=== PATIENT | male | born 1940 | race Caucasian/White ===

== ENCOUNTER 2019-01-23 17:51 | Inpatient (IN) | payer MEDICARE, MEDICAID ==
[2019-01-23 18:14] LABS: ABSOLUTE EOSINOPHILS # (AUTO) 0.1 10^3/uL (0.0-0.6); ABSOLUTE LYMPHOCYTES (AUTO) 0.9 10^3/uL (0.5-4.7); ABSOLUTE MONOCYTES (AUTO) 0.6 10^3/uL (0.1-1.4); ABSOLUTE NEUT (AUTO) 6.6 10^3/uL (1.7-8.2); BASOPHILS % (AUTO) 0.2 % (0-2); EOSINOPHILS % (AUTO) 1.1 % (0-6); HEMATOCRIT 40.3 % (37.9-51.0); HEMOGLOBIN 13.2 g/dL (13.5-17.0); LYMPHOCYTES % (AUTO) 10.7 % (13-45); MEAN CORPUSCULAR HEMOGLOBIN 30.5 pg (27.0-33.4); MEAN CORPUSCULAR HGB CONC 32.8 g/dL (32.0-36.0); MEAN CORPUSCULAR VOLUME 93 fl (80-97); MONOCYTES % (AUTO) 7.3 % (3-13); PLATELET COUNT 115 10^3/uL (150-450); RED BLOOD COUNT 4.34 10^6/uL (4.35-5.55); SEGMENTED NEUTROPHILS % (AUTO) 80.7 % (42-78); TOTAL CELLS COUNTED % (AUTO) 100 %; WHITE BLOOD COUNT 8.2 10^3/uL (4.0-10.5)
[2019-01-23] MEDS ORDERED: NORMAL SALINE 1000 ML 1,000 ML IV ONE (18:14)
[2019-01-23 18:26] LABS: VENOUS BLOOD BASE EXCESS -2.4 mmol/L; VENOUS BLOOD HCO3 25.9 mmol/L (20-32); VENOUS BLOOD PCO2 60.1 mmHg (35-63); VENOUS BLOOD PH 7.25 (7.30-7.42)
[2019-01-23 18:32] LABS: INTERNATIONAL RATION (INR) 1.29; PROTHROMBIN TIME 16.2 SEC (11.4-15.4)
[2019-01-23 18:34] LABS: ALBUMIN 3.3 g/dL (3.5-5.0); ALKALINE PHOSPHATASE 77 U/L (38-126); ANION GAP 12 (5-19); ASPARTATE AMINO TRANSFERASE 19 U/L (17-59); BILIRUBIN,DIRECT 0.7 mg/dL (0.0-0.4); BILIRUBIN,TOTAL 1.1 mg/dL (0.2-1.3); BLOOD UREA NITROGEN 113 mg/dL (7-20); CARBON DIOXIDE 26 mmol/L (22-30); CHLORIDE 103 mmol/L (98-107); GLUCOSE 128 mg/dL (75-110); POTASSIUM 4.5 mmol/L (3.6-5.0); TOTAL PROTEIN 6.5 g/dL (6.3-8.2)
[2019-01-23 19:50] LABS: APPEARANCE,URINE CLEAR; BILIRUBIN,URINE NEGATIVE (NEGATIVE); COLOR,URINE YELLOW; GLUCOSE, URINE NEGATIVE (NEGATIVE); KETONES,URINE TRACE mg/dL (NEGATIVE); LEUKOCYTE ESTERASE,URINE TRACE (NEGATIVE); NITRITE,URINE NEGATIVE (NEGATIVE); PROTEIN,URINE NEGATIVE (NEGATIVE); URINE SPECIFIC GRAVITY 1.018
[2019-01-23 20:02] LABS: ADD MANUAL MICROSCOPIC YES
[2019-01-23 20:04] LABS: WBC,URINE 0-1 /HPF
--- NOTE | 2019-01-23 21:22 | RADIOLOGY REPORT (SQ) ---
XR CHEST 2 VIEWS EXAM DATE: 01/23/2019 8:41 PM CDT HISTORY: Dyspnea, hypoxia. COMPARISON: None. FINDINGS: The heart size is within normal limits. No consolidation, pleural effusion, or pneumothorax is seen. Scarring in the right midlung zone. The bony thorax is intact. The right hemidiaphragm is elevated. IMPRESSION: No evidence of acute cardiopulmonary disease.
--- NOTE | 2019-01-23 22:30 | ER Document Report ---
ED General - General Chief Complaint: Blood Pressure Problem Stated Complaint: POSSIBLE SEPSIS Time Seen by Provider: 01/23/19 18:13 Primary Care Provider: CORAL GUSMAN PA-C [Primary Care Provider] - Follow up as needed TRAVEL OUTSIDE OF THE [place] IN LAST 30 DAYS: No - HPI Notes: Patient is a 78-year-old male brought into the emergency department for evaluation. He had symptoms for about a week. Evidently he has been dizzy, felt short of breath. His shortness of breath is constant. His dizziness is constant. He states that the world seems to be moving. Is not worsened by moving his head. They are unaware of any fevers at home. According to daughter, he started slurring his speech about 4 days ago. No recent falls. No visual changes. Diminished appetite with some complaints of nausea. No other medication changes. No other acute complaints or concerns. On arrival for EMS, patient's temperature was 100.6. Patient is also been having intermittent r ight-sided abdominal pain ongoing for the last several weeks. He really cannot tell me what makes it better or worse. - Related Data Allergies/Adverse Reactions: No Known Allergies Allergy (Verified 01/23/19 18:20) Past Medical History - General Information source: Patient, Relative - Social History Smoking Status: Former Smoker Family History: Reviewed & Not Pertinent Patient has suicidal ideation: No Patient has homicidal ideation: No - Past Medical History Cardiac Medical History: Reports: Hx Hypertension Denies: Hx Heart Attack Pulmonary Medical History: Reports: Hx Asthma, Hx COPD Denies: Hx Tuberculosis Neurological Medical History: Reports: Hx Cerebrovascular Accident. Denies: Hx Seizures Endocrine Medical History: Reports: Hx Diabetes Mellitus Type 2 GI Medical History: Reports: Hx Gastroesophageal Reflux Disease. Denies: Hx Hepatitis, Hx Hiatal Hernia, Hx Ulcer Musculoskeletal Medical History: Reports Hx Arthritis - Rheumatoid arthritis Infectious Medical History: Denies: Hx Hepatitis Past Surgical History: Denies: Hx Open Heart Surgery, Hx Pacemaker - Immunizations Hx Diphtheria, Pertussis, Tetanus Vaccination: No Hx Pneumococcal Vaccination: 04/20/13 Review of Systems - Review of Systems Constitutional: See HPI EENT: No symptoms reported Cardiovascular: No symptoms reported Respiratory: See HPI Gastrointestinal: See HPI Genitourinary: No symptoms reported Musculoskeletal: No symptoms reported Skin: No symptoms reported Neurological/Psychological: See HPI Physical Exam - Vital signs Vitals: Resp 14 01/23/19 18:07 - Notes Notes: 8-year-old male who appears stated age in no acute distress. He is drowsy, but arouses easily to verbal stimuli. Vital signs reviewed, please refer to chart. Head is normocephalic, atraumatic. Pupils equal round, reactive to light. Neck is supple without meningismus. Heart is regular rate and rhythm. Lungs are clear to auscultation bilaterally. Abdomen is soft, tender in the right upper quadrant with some voluntary guarding but no rebound, normoactive bowel sounds throughout. Extremities without cyanosis, clubbing. Posterior calves are nontender. Peripheral pulses are equal. Skin is warm and dry. Patient is awake, alert. I asked him to tell me the month and the year, he states "I do not pay attention to those things." He is illiterate per family. He has no gross facial asymmetry, but he does have some mild dysarthria. Moves all 4 extremities spontaneously with plus 4 out of 5 strength throughout. Reflexes symmetrical. Course - Re-evaluation Re-evalutation: 01/23/19 22:29 Patient presents to the emergency department for evaluation. They were unaware of any fevers at home. His temperature was 100.6 prior to arrival, he was given Tylenol and IV fluids. Laboratory investigations revealed abnormal renal function. He has no history of ELINA per family, and in fact is on diclofenac for his rheumatoid arthritis. Given his dysarthria, I am inclined to scan his head. He does not have any signs of nuchal rigidity. Patient is stable, will continue to monitor. 01/24/19 02:18 Patient presents emergency department for evaluation of dizziness, increased confusion, slurred speech, some dyspnea with exertion. On further questioning the patient has had abdominal pain intermittently for some time. On exam he is tender with voluntary gurading in the right upper quadrant, although he states it is nontender. Laboratory investigations reveal acute kidney injury. He does not have a significant leukocytosis. Dysarthria was noted, so CT scan of the head was ordered, no acute findings were noted. CT scan of the abdomen and pelvis reveals calculus cholecystitis. Patient was given IV fluids. He was given IV antibiotics for cholecystitis. He is kept n.p.o. I spoke with Dr. Agustin, who will see the patient in consult. 01/24/19 02:[address] Foster, who will accept the patient for admission. - Vital Signs Vital signs: Temp Pulse Resp BP Pulse Ox 98.2 F 24 H 134/74 H 92 01/23/19 18:18 01/24/19 02:01 01/24/19 02:01 01/24/19 02:01 - Laboratory Result Diagrams: 01/23/19 17:35 01/23/19 17:35 Laboratory results interpreted by me: 01/23/19 01/23/19 01/23/19 17:35 17:35 17:35 RBC 4.34 L Hgb 13.2 L RDW 15.0 H Plt Count 115 L Lymph % (Auto) 10.7 L Seg Neutrophils % 80.7 H PT 16.2 H VBG pH BUN 113 H Creatinine 2.19 H Est GFR ( Amer) 35 L Est GFR (MDRD) Non-Af 29 L Glucose 128 H Calcium 8.0 L Direct Bilirubin 0.7 H Albumin 3.3 L Urine Ketones Urine Urobilinogen Ur Leukocyte Esterase 01/23/19 01/23/19 18:10 18:50 RBC Hgb RDW Plt Count Lymph % (Auto) Seg Neutrophils % PT VBG pH 7.25 L BUN Creatinine Est GFR ( Amer) Est GFR (MDRD) Non-Af Glucose Calcium Direct Bilirubin Albumin Urine Ketones TRACE H Urine Urobilinogen 4.0 H Ur Leukocyte Esterase TRACE H - Diagnostic Test Radiology reviewed: Reports reviewed Radiology results interpreted by me: 01/24/19 02:23 Chest X-Ray 01/23/19 20:41 IMPRESSION: No evidence of acute cardiopulmonary disease. Head CT 01/23/19 22:24 IMPRESSION: No acute intracranial abnormality. Mild chronic microvascular ischemic change and generalized atrophy. TECHNICAL DOCUMENTATION: Quality ID # 436: Final reports with documentation of one or more dose reduction techniques (e.g., Automated exposure control, adjustment of the mA and/or kV according to patient size, use of iterative reconstruction technique) copyright 2011 [employer]- All Rights Reserved Abdomen/Pelvis CT 01/24/19 00:58 IMPRESSION: Acute calculus cholecystitis. TECHNICAL DOCUMENTATION: Quality ID # 436: Final reports with documentation of one or more dose reduction techniques (e.g., Automated exposure control, adjustment of the mA and/or kV according to patient size, use of iterative reconstruction technique) copyright 2010 [employer]- All Rights Reserved Discharge - Discharge Clinical Impression: Dysarthria, Acute kidney injury Calculus of gallbladder with cholecystitis Qualifiers: Biliary obstruction: without biliary obstruction Condition: Stable Disposition: ADMITTED INPATIENT Admitting Provider: Cristian (Hospitalist) Unit Admitted: IMCU Referrals: CORAL GUSMAN PA-C [Primary Care Provider] - Follow up as needed
--- NOTE | 2019-01-23 23:31 | RADIOLOGY REPORT (SQ) ---
EXAM DESCRIPTION: CT HEAD WITHOUT IV CONTRAST COMPLETED DATE/TME: 01/23/2019 22:24 CLINICAL HISTORY: 78 years, Male, slurred speech COMPARISON: None. TECHNIQUE: Noncontrast CT of the head was performed. Coronal and sagittal reformations were created. Images stored on PACS. All CT scanners at this facility use dose modulation, iterative reconstruction, and/or weight based dosing when appropriate to reduce radiation dose to as low as reasonably achievable (ALARA). [facility]: Dose Right [facility]: CareDose [facility]: Dose Right [facility]: Teradose 4D [facility]: [employer] LIMITATIONS: None. FINDINGS: Evaluation of the brain parenchyma reveals mild periventricular and patchy subcortical white matter low attenuation. No acute intracranial hemorrhage, mass effect, or extra-axial fluid is seen. The ventricles and sulcal spaces are mildly enlarged. Globes and orbits show no acute abnormality. Mild opacity is evident within the right maxillary antrum inferiorly. Remaining paranasal sinuses and mastoid air cells are clear. No depressed skull fractures. IMPRESSION: No acute intracranial abnormality. Mild chronic microvascular ischemic change and generalized atrophy. TECHNICAL DOCUMENTATION: Quality ID # 436: Final reports with documentation of one or more dose reduction techniques (e.g., Automated exposure control, adjustment of the mA and/or kV according to patient size, use of iterative reconstruction technique) copyright 2011 [employer]- All Rights Reserved
--- NOTE | 2019-01-24 01:50 | RADIOLOGY REPORT (SQ) ---
EXAM DESCRIPTION: CT ABDOMEN PELVIS WITHOUT IV CONTRAST COMPLETED DATE/TME: 01/24/2019 00:58 CLINICAL HISTORY: 78 years, Male, right sided abdominal pain COMPARISON: None. TECHNIQUE: Axial CT images of the abdomen and pelvis were obtained without contrast. Sagittal and coronal reformats were performed. DLP [id number] Images stored on PACS. All CT scanners at this facility use dose modulation, iterative reconstruction, and/or weight based dosing when appropriate to reduce radiation dose to as low as reasonably achievable (ALARA). [facility]: Dose Right [facility]: CareDose [facility]: Dose Right [facility]: Teradose 4D [facility]: [employer] LIMITATIONS: None. FINDINGS: Lung bases are clear except for some subsegmental atelectasis. The liver, pancreas, spleen, and adrenal glands are unremarkable. There is a 3.7 cm gallstone with a distended gallbladder with minimal pericholecystic stranding. There is no evidence of urolithiasis or hydronephrosis bilaterally. There is no intraperitoneal free air or fluid. No pathologically enlarged lymph nodes are detected. There are atherosclerotic calcifications of the abdominal aorta without evidence of an aneurysm. The stomach, small bowel, appendix, and colon appear unremarkable. The urinary bladder and prostate gland are unremarkable. There are no lytic or blastic bone lesions. IMPRESSION: Acute calculus cholecystitis. TECHNICAL DOCUMENTATION: Quality ID # 436: Final reports with documentation of one or more dose reduction techniques (e.g., Automated exposure control, adjustment of the mA and/or kV according to patient size, use of iterative reconstruction technique) copyright 2011 [employer]- All Rights Reserved
[2019-01-24] MEDS ORDERED: NORMAL SALINE 1000 ML 1,000 ML IV ONE (02:14)
[2019-01-24] MEDS ORDERED: PIPERACILLIN/TAZOBACTAM 3.375 GM VIAL IV ONE (02:14)
[2019-01-24] MEDS ORDERED: ACETAMINOPHEN 325 MG TABLET PO PRN (02:39)
[2019-01-24] MEDS ORDERED: IPRATROPIUM/ALBUTEROL 0.5-2.5 MG/3 ML AMPUL NEB PRN (02:39)
[2019-01-24] MEDS ORDERED: DEXTROSE 40% GEL 15 GM TUBE PO PRN ×2 (02:39)
[2019-01-24] MEDS ORDERED: GLUCAGON,HUMAN RECOMB 1 MG INJ IM PRN (02:39)
[2019-01-24] MEDS ORDERED: ONDANSETRON HCL INJ/PF 4 MG/2 ML SDV IV PRN (02:39)
[2019-01-24] MEDS ORDERED: DEXTROSE 50%-WATER 25 GM/50 ML DISP.SYRIN IV PRN ×2 (02:39)
[2019-01-24] MEDS ORDERED: MAG HYDROX/AL HYDROX/SIMETH SUSP 30 ML UDCUP PO PRN (02:39)
--- NOTE | 2019-01-24 06:04 | PDOC H&P ---
History of Present Illness Admission Date/PCP: 01/24/19 02:52 CORAL GUSMAN PA-C Patient complains of: Altered mental status History of Present Illness: LYNN MCRAE is a 78 year old male with a past medical history of COPD with oxygen use at night, diabetes, hypothyroidism, thrombocytopenia and hypertension who presents with 1 week of shortness of breath with deep breathing generalized weakness developing slurred speech over the last 72 hours without focal weakness he is brought to the emergency room for evaluation and found to have fever, acute renal failure and acute cholecystitis. He denies chest pain he has had some nausea without vomiting and abdominal distention. Surgery is consulted, he receives IV fluid, empiric antibiotics and referred to the hospitalist for admission. He denies recent change in medication regiment. Past Medical History Cardiac Medical History: Reports: Hypertension Denies: Myocardial Infarction Pulmonary Medical History: Reports: Asthma, Chronic Obstructive Pulmonary Disease (COPD) Denies: Tuberculosis Neurological Medical History: Denies: Seizures Endocrine Medical History: Reports: Diabetes Mellitus Type 2 GI Medical History: Reports: Gastroesophageal Reflux Disease Denies: Hepatitis, Hiatal Hernia Musculoskeltal Medical History: Reports: Arthritis - Rheumatoid arthritis Hematology: Denies: Anemia, Sickle Cell Disease Past Surgical History Past Surgical History: Denies: Pacemaker Social History Information Source: Patient, H Records Lives with: Family Smoking Status: Former Smoker Frequency of Alcohol Use: None Hx Recreational Drug Use: No Hx Prescription Drug Abuse: No - Advance Directive Resuscitation Status: Full Code Family History Family History: COPD Parental Family History Reviewed: Yes Children Family History Reviewed: Yes Sibling(s) Family History Reviewed.: Yes Medication/Allergy Home Medications: Albuterol Sulfate [Ventolin Hfa] 2 units PO PRN PRN 04/20/13 Furosemide [Lasix] 20 mg PO PRN 04/20/13 Glimepiride [Amaryl 4 mg Tablet] 4 mg PO DAILY 04/20/13 Levothyroxine Sodium [Unithroid] 50 mcg PO DAILY 04/20/13 Metformin HCl [Glucophage 500 mg Tablet] 500 mg PO BID 04/20/13 Montelukast Sodium 10 mg PO DAILY 04/20/13 Lisinopril 10 mg PO BID #60 tablet 04/23/13 Diclofenac Sodium 75 mg PO BID 01/24/19 Gabapentin [Neurontin 300 mg Capsule] 300 mg PO TID 01/24/19 Losartan Potassium [Cozaar 100 mg Tablet] 100 mg PO DAILY 01/24/19 Omeprazole 20 mg PO DAILY 01/24/19 Quetiapine Fumarate [Seroquel] 25 mg PO TID 01/24/19 Tamsulosin HCl [Flomax] 0.4 mg PO DAILY 01/24/19 Trazodone HCl 50 mg PO QPM 01/24/19 Allergies/Adverse Reactions: No Known Allergies Allergy (Verified 01/23/19 18:20) Review of Systems Constitutional: PRESENT: as per HPI, anorexia, chills, fatigue, weakness. ABSENT: weight gain, weight loss Eyes: ABSENT: visual disturbances Ears: ABSENT: hearing changes Cardiovascular: ABSENT: chest pain, dyspnea on exertion, edema, orthropnea, palpitations Respiratory: PRESENT: as per HPI, dyspnea. ABSENT: cough, sputum Gastrointestinal: PRESENT: as per HPI, abdominal pain, bloating, nausea. ABSENT: constipation, diarrhea Genitourinary: ABSENT: dysuria, hematuria Musculoskeletal: ABSENT: joint swelling Integumentary: ABSENT: rash, wounds Neurological: ABSENT: abnormal gait, abnormal speech, confusion, dizziness, focal weakness, syncope Psychiatric: ABSENT: anxiety, depression, homidical ideation, suicidal ideation Endocrine: ABSENT: cold intolerance, heat intolerance, polydipsia, polyuria Hematologic/Lymphatic: ABSENT: easy bleeding, easy bruising Physical Exam Vital Signs: Temp Pulse Resp BP Pulse Ox 98.2 F 81 18 113/72 94 01/23/19 18:18 01/24/19 04:58 01/24/19 04:58 01/24/19 03:03 01/24/19 04:58 Intake & Output 01/22/19 01/23/19 01/24/19 11:59 11:59 11:59 Intake Total 1000 Balance 1000 Weight 118.3 kg General appearance: PRESENT: cooperative, mild distress, well-developed, well- nourished. ABSENT: disheveled Head exam: PRESENT: atraumatic, normocephalic Eye exam: PRESENT: conjunctiva pink, EOMI, PERRLA. ABSENT: scleral icterus Ear exam: PRESENT: normal external ear exam Mouth exam: PRESENT: dry mucosa, tongue midline Neck exam: ABSENT: carotid bruit, JVD, lymphadenopathy, thyromegaly Respiratory exam: PRESENT: crackles, prolonged expiratory phas, symmetrical. ABSENT: rales, rhonchi, wheezes Cardiovascular exam: PRESENT: RRR. ABSENT: diastolic murmur, rubs, systolic murmur Pulses: PRESENT: normal dorsalis pedis pul Vascular exam: PRESENT: normal capillary refill GI/Abdominal exam: PRESENT: firm, guarding, hypoactive bowel sounds, soft, tenderness - Right upper quadrant Rectal exam: PRESENT: deferred Extremities exam: PRESENT: full ROM. ABSENT: calf tenderness, clubbing, pedal edema Neurological exam: PRESENT: alert, awake, oriented to person, oriented to place, oriented to time, oriented to situation, CN II-XII grossly intact. ABSENT: motor sensory deficit Psychiatric exam: PRESENT: appropriate affect, normal mood. ABSENT: homicidal ideation, suicidal ideation Skin exam: PRESENT: dry, intact, warm. ABSENT: cyanosis, rash Results Laboratory Results: 01/23/19 17:35 01/23/19 17:35 01/23/19 01/23/19 01/23/19 17:35 17:35 17:35 WBC 8.2 RBC 4.34 L Hgb 13.2 L Hct 40.3 MCV 93 MCH 30.5 MCHC 32.8 RDW 15.0 H Plt Count 115 L Seg Neutrophils % 80.7 H VBG pH VBG pCO2 VBG HCO3 VBG Base Excess Sodium 140.7 Potassium 4.5 Chloride 103 Carbon Dioxide 26 Anion Gap 12 BUN 113 H Creatinine 2.19 H Est GFR ( Amer) 35 L Glucose 128 H Lactic Acid Calcium 8.0 L Magnesium 1.7 Total Bilirubin 1.1 AST 19 Alkaline Phosphatase 77 Total Protein 6.5 Albumin 3.3 L Urine Color Urine Appearance Urine pH Ur Specific [place] Urine Protein Urine Glucose (UA) Urine Ketones Urine Blood Urine Nitrite Ur Leukocyte Esterase Ur Squamous Epith Cells 01/23/19 01/23/19 01/23/19 18:10 18:10 18:50 WBC RBC Hgb Hct MCV MCH MCHC RDW Plt Count Seg Neutrophils % VBG pH 7.25 L VBG pCO2 60.1 VBG HCO3 25.9 VBG Base Excess -2.4 Sodium Potassium Chloride Carbon Dioxide Anion Gap BUN Creatinine Est GFR ( Amer) Glucose Lactic Acid 0.9 Calcium Magnesium Total Bilirubin AST Alkaline Phosphatase Total Protein Albumin Urine Color YELLOW Urine Appearance CLEAR Urine pH 5.0 Ur Specific [place] 1.018 Urine Protein NEGATIVE Urine Glucose (UA) NEGATIVE Urine Ketones TRACE H Urine Blood NEGATIVE Urine Nitrite NEGATIVE Ur Leukocyte Esterase TRACE H Ur Squamous Epith Cells RARE Impressions: Chest X-Ray 01/23/19 20:41 IMPRESSION: No evidence of acute cardiopulmonary disease. Head CT 01/23/19 22:24 IMPRESSION: No acute intracranial abnormality. Mild chronic microvascular ischemic change and generalized atrophy. TECHNICAL DOCUMENTATION: Quality ID # 436: Final reports with documentation of one or more dose reduction techniques (e.g., Automated exposure control, adjustment of the mA and/or kV according to patient size, use of iterative reconstruction technique) copyright 2010 [email or web address]- All Rights Reserved Abdomen/Pelvis CT 01/24/19 00:58 IMPRESSION: Acute calculus cholecystitis. TECHNICAL DOCUMENTATION: Quality ID # [id number]: Final reports with documentation of one or more dose reduction techniques (e.g., Automated exposure control, adjustment of the mA and/or kV according to patient size, use of iterative reconstruction technique) copyright 2010 [email or web address]- All Rights Reserved Assessment and Plan - Diagnosis (1) Calculus of gallbladder with cholecystitis Qualifiers: Biliary obstruction: without biliary obstruction Is this a current diagnosis for this admission?: Yes Plan: Zosyn initiated, symptomatic management IV fluid. Follow-up blood culture and surgical consult (2) Acute kidney injury Is this a current diagnosis for this admission?: Yes Plan: Secondary to #1. IV fluid challenge, avoid nephrotoxic meds and doses follow-up chemistry (3) COPD (chronic obstructive pulmonary disease) Is this a current diagnosis for this admission?: Yes Plan: Supplemental oxygen, BiPAP as needed, incentive spirometry albuterol and Atrovent scheduled and as needed (4) Thrombocytopenia Is this a current diagnosis for this admission?: Yes Plan: Improved from baseline follow-up CBC (5) Acute encephalopathy Is this a current diagnosis for this admission?: Yes Plan: Secondary to #1, supportive care. Currently at baseline - Time Time Spent with patient: 25-34 minutes - Inpatient Certification Medical Necessity: Need Close Monitoring Due to Risk of Patient Decompensation
[2019-01-24] MEDS: INSULIN LISPRO 100 UNIT/ML 3 ML VIAL SUBCUT SCH ×3 (07:00→18:52)
[2019-01-24] MEDS: HEPARIN SOD (PORCINE) 5,000 UNIT/ML 1 ML VIAL SUBCUT SCH ×3 (07:07→21:52)
[2019-01-24] MEDS: IPRATROPIUM/ALBUTEROL 0.5-2.5 MG/3 ML AMPUL NEB SCH ×2 (07:52→20:04)
--- NOTE | 2019-01-24 08:45 | EKG REPORT ---
SEVERITY:- ABNORMAL ECG - SINUS RHYTHM MULTIPLE VENTRICULAR PREMATURE COMPLEXES IVCD, CONSIDER ATYPICAL LBBB : Confirmed by: Rosana Roberts MD 24-Jan-2019 08:44:49
[2019-01-24] MEDS: DOCUSATE SODIUM 100 MG CAPSULE PO SCH ×2 (09:32→18:38)
[2019-01-24] MEDS: PIPERACILLIN SODIUM/TAZOBACTAM 3.375 GM in NORMAL SALINE 100 ML IV SCH ×3 (09:32→22:03)
--- NOTE | 2019-01-24 12:31 | PDOC CONSULTATION ---
Consultation Consult Date: 01/24/19 Provider Consulted: FREDERICK FRANKLIN History of Present Illness Admission Date/PCP: 01/24/19 02:52 CORAL GUSMAN PA-C History of Present Illness: LYNN MCRAE is a 78 year old male with history of diabetes mellitus and severe COPD on home oxygen complaining of intermittent right upper quadrant pains after fatty meals in the past few weeks. He was actually admitted for increasing shortness of breath and fever. He had a finding of gallstones with mild thickened gallbladder wall and a CAT scan of the abdomen. He says his pains are usually in the right upper quadrant but this morning when seen claims the pain have subsided without any pain medication. I ordered a HIDA scan to make sure there is acute cholecystitis since he is high risk for any operation at this time. Past Medical History Cardiac Medical History: Reports: Hypertension Denies: Myocardial Infarction Pulmonary Medical History: Reports: Asthma, Chronic Obstructive Pulmonary Disease (COPD) Denies: Tuberculosis Neurological Medical History: Denies: Seizures Endocrine Medical History: Reports: Diabetes Mellitus Type 2 GI Medical History: Reports: Gastroesophageal Reflux Disease Denies: Hepatitis, Hiatal Hernia Musculoskeltal Medical History: Reports: Arthritis - Rheumatoid arthritis Hematology: Denies: Anemia, Sickle Cell Disease Past Surgical History Past Surgical History: Denies: Pacemaker Social History Lives with: Family Smoking Status: Former Smoker Frequency of Alcohol Use: None Hx Recreational Drug Use: No Hx Prescription Drug Abuse: No - Advance Directive Resuscitation Status: Full Code Family History Family History: COPD Parental Family History Reviewed: Yes Children Family History Reviewed: No Sibling(s) Family History Reviewed.: No Medication/Allergy Home Medications: Albuterol Sulfate [Ventolin Hfa] 2 units PO PRN PRN 04/20/13 Furosemide [Lasix] 20 mg PO DAILY 04/20/13 Glimepiride [Amaryl 4 mg Tablet] 4 mg PO DAILY 04/20/13 Levothyroxine Sodium [Unithroid] 50 mcg PO DAILY 04/20/13 Metformin HCl [Glucophage 500 mg Tablet] 500 mg PO BID 04/20/13 Montelukast Sodium 10 mg PO DAILY 04/20/13 Diclofenac Sodium 75 mg PO BID 01/24/19 Gabapentin [Neurontin 300 mg Capsule] 300 mg PO TID 01/24/19 Levothyroxine Sodium [Synthroid] 200 mcg PO DAILY 01/24/19 Losartan Potassium [Cozaar 100 mg Tablet] 100 mg PO DAILY 01/24/19 Omeprazole 20 mg PO DAILY 01/24/19 Oxycodone HCl [Oxycodone HCl 10 MG Tablet] 10 mg PO Q4HP PRN 01/24/19 Quetiapine Fumarate [Seroquel] 25 mg PO TID 01/24/19 Tamsulosin HCl [Flomax] 0.4 mg PO DAILY 01/24/19 Trazodone HCl 50 mg PO QPM 01/24/19 Allergies/Adverse Reactions: No Known Allergies Allergy (Verified 01/23/19 18:20) Review of Systems Constitutional: PRESENT: as per HPI Gastrointestinal: PRESENT: abdominal pain Physical Exam Vital Signs: Temp Pulse Resp BP Pulse Ox 98.2 F 81 22 H 139/75 H 94 01/23/19 18:18 01/24/19 04:58 01/24/19 08:01 01/24/19 08:00 01/24/19 08:01 Intake & Output 01/23/19 01/24/19 01/25/19 06:59 06:59 06:59 Intake Total 1000 Balance 1000 Weight 118.3 kg General appearance: PRESENT: mild distress Head exam: PRESENT: atraumatic Eye exam: PRESENT: conjunctiva pink Mouth exam: PRESENT: moist Neck exam: PRESENT: full ROM Respiratory exam: PRESENT: clear to auscultation cristal Cardiovascular exam: PRESENT: RRR Pulses: PRESENT: normal radial pulses Vascular exam: PRESENT: normal capillary refill GI/Abdominal exam: PRESENT: soft - non tender Rectal exam: PRESENT: deferred Musculoskeletal exam: PRESENT: ambulatory Neurological exam: PRESENT: alert, oriented to person, oriented to place, oriented to time, oriented to situation Psychiatric exam: PRESENT: anxious Skin exam: PRESENT: normal color, warm Results Laboratory Results: 01/23/19 17:35 01/23/19 17:35 01/23/19 01/23/19 01/23/19 17:35 17:35 17:35 WBC 8.2 RBC 4.34 L Hgb 13.2 L Hct 40.3 MCV 93 MCH 30.5 MCHC 32.8 RDW 15.0 H Plt Count 115 L Seg Neutrophils % 80.7 H VBG pH VBG pCO2 VBG HCO3 VBG Base Excess Sodium 140.7 Potassium 4.5 Chloride 103 Carbon Dioxide 26 Anion Gap 12 BUN 113 H Creatinine 2.19 H Est GFR ( Amer) 35 L Glucose 128 H Lactic Acid Calcium 8.0 L Magnesium 1.7 Total Bilirubin 1.1 AST 19 Alkaline Phosphatase 77 Total Protein 6.5 Albumin 3.3 L Urine Color Urine Appearance Urine pH Ur Specific [place] Urine Protein Urine Glucose (UA) Urine Ketones Urine Blood Urine Nitrite Ur Leukocyte Esterase Ur Squamous Epith Cells 01/23/19 01/23/19 01/23/19 18:10 18:10 18:50 WBC RBC Hgb Hct MCV MCH MCHC RDW Plt Count Seg Neutrophils % VBG pH 7.25 L VBG pCO2 60.1 VBG HCO3 25.9 VBG Base Excess -2.4 Sodium Potassium Chloride Carbon Dioxide Anion Gap BUN Creatinine Est GFR ( Amer) Glucose Lactic Acid 0.9 Calcium Magnesium Total Bilirubin AST Alkaline Phosphatase Total Protein Albumin Urine Color YELLOW Urine Appearance CLEAR Urine pH 5.0 Ur Specific [place] 1.018 Urine Protein NEGATIVE Urine Glucose (UA) NEGATIVE Urine Ketones TRACE H Urine Blood NEGATIVE Urine Nitrite NEGATIVE Ur Leukocyte Esterase TRACE H Ur Squamous Epith Cells RARE Impressions: Chest X-Ray 01/23/19 20:41 IMPRESSION: No evidence of acute cardiopulmonary disease. Head CT 01/23/19 22:24 IMPRESSION: No acute intracranial abnormality. Mild chronic microvascular ischemic change and generalized atrophy. TECHNICAL DOCUMENTATION: Quality ID # 436: Final reports with documentation of one or more dose reduction techniques (e.g., Automated exposure control, adjustment of the mA and/or kV according to patient size, use of iterative reconstruction technique) copyright 2010 [employer]- All Rights Reserved Abdomen/Pelvis CT 01/24/19 00:58 IMPRESSION: Acute calculus cholecystitis. TECHNICAL DOCUMENTATION: Quality ID # 436: Final reports with documentation of one or more dose reduction techniques (e.g., Automated exposure control, adjustment of the mA and/or kV according to patient size, use of iterative reconstruction technique) copyright 2011 [employer]- All Rights Reserved Assessment & Plan - Diagnosis (1) Cholelithiasis Is this a current diagnosis for this admission?: Yes (2) Acute kidney injury Is this a current diagnosis for this admission?: Yes (3) COPD (chronic obstructive pulmonary disease) Is this a current diagnosis for this admission?: Yes - Time Time Spent: 30 to 50 Minutes - Inpatient Certification Medical Necessity: Need for IV Antibiotics, Need for Surgery - Plan Summary Plan Summary: HIDA scan was ordered to make sure patient has acute cholecystitis. He is is a high risk for surgery because of severe COPD and diabetes mellitus. If HIDA scan is normal then surgery surgery may not have to be done as an emergency Continue IV antibiotics
--- NOTE | 2019-01-24 13:34 | RADIOLOGY REPORT (SQ) ---
EXAM DESCRIPTION: NM HIDA SCAN COMPLETED DATE/TIME: 01/24/2019 1:24 pm REASON FOR STUDY: R/O acute cholecystitis COMPARISON: None. RADIONUCLIDE AND DOSE: DOSAGE RADIONUCLIDE: 5 millicuries Tc99m Mebrofenin. DOSAGE MORPHINE: Not required. The route of agent administration: Intravenous TECHNIQUE: Serial imaging right upper quadrant up to 60 minutes following injection of radionuclide. Patient imaged AP and Right Lateral. LIMITATIONS: None. FINDINGS: LIVER: Normal visualization without areas of photopenia. INTRA-HEPATIC BILE DUCTS: Temporal visualization normal. No dilatation. COMMON BILE DUCT: Normal without dilatation or delayed visualization. GALLBLADDER: The gallbladder does not visualize. OTHER: No other significant finding. IMPRESSION: Nonvisualization of the gallbladder. Patent common bile duct. TECHNICAL DOCUMENTATION: JOB ID: [id number] [employer]- All Rights Reserved Reading location - IP/workstation name: [email or web address]
--- NOTE | 2019-01-24 14:00 | PDOC PROGRESS REPORT ---
Subjective Progress Note for:: 01/24/19 Reason For Visit: ACUTE SATISH,SEPSIS,AMS,ARF Physical Exam Vital Signs: Temp Pulse Resp BP Pulse Ox 98.2 F 81 22 H 139/75 H 94 01/23/19 18:18 01/24/19 04:58 01/24/19 08:01 01/24/19 08:00 01/24/19 08:01 Intake & Output 01/23/19 01/24/19 01/25/19 06:59 06:59 06:59 Intake Total 1000 100 Balance 1000 100 Weight 118.3 kg Results Laboratory Results: 01/23/19 17:35 01/23/19 17:35 01/23/19 01/23/19 01/23/19 17:35 17:35 17:35 WBC 8.2 RBC 4.34 L Hgb 13.2 L Hct 40.3 MCV 93 MCH 30.5 MCHC 32.8 RDW 15.0 H Plt Count 115 L Seg Neutrophils % 80.7 H VBG pH VBG pCO2 VBG HCO3 VBG Base Excess Sodium 140.7 Potassium 4.5 Chloride 103 Carbon Dioxide 26 Anion Gap 12 BUN 113 H Creatinine 2.19 H Est GFR ( Amer) 35 L Glucose 128 H Lactic Acid Calcium 8.0 L Magnesium 1.7 Total Bilirubin 1.1 AST 19 Alkaline Phosphatase 77 Total Protein 6.5 Albumin 3.3 L Urine Color Urine Appearance Urine pH Ur Specific [place] Urine Protein Urine Glucose (UA) Urine Ketones Urine Blood Urine Nitrite Ur Leukocyte Esterase Ur Squamous Epith Cells 01/23/19 01/23/19 01/23/19 18:10 18:10 18:50 WBC RBC Hgb Hct MCV MCH MCHC RDW Plt Count Seg Neutrophils % VBG pH 7.25 L VBG pCO2 60.1 VBG HCO3 25.9 VBG Base Excess -2.4 Sodium Potassium Chloride Carbon Dioxide Anion Gap BUN Creatinine Est GFR ( Amer) Glucose Lactic Acid 0.9 Calcium Magnesium Total Bilirubin AST Alkaline Phosphatase Total Protein Albumin Urine Color YELLOW Urine Appearance CLEAR Urine pH 5.0 Ur Specific [place] 1.018 Urine Protein NEGATIVE Urine Glucose (UA) NEGATIVE Urine Ketones TRACE H Urine Blood NEGATIVE Urine Nitrite NEGATIVE Ur Leukocyte Esterase TRACE H Ur Squamous Epith Cells RARE Impressions: Chest X-Ray 01/23/19 20:41 IMPRESSION: No evidence of acute cardiopulmonary disease. Head CT 01/23/19 22:24 IMPRESSION: No acute intracranial abnormality. Mild chronic microvascular ischemic change and generalized atrophy. TECHNICAL DOCUMENTATION: Quality ID # 436: Final reports with documentation of one or more dose reduction techniques (e.g., Automated exposure control, adjustment of the mA and/or kV according to patient size, use of iterative reconstruction technique) copyright 2010 [employer]- All Rights Reserved Hepatobiliary Scan Nuclear Medicine 01/24/19 00:00 IMPRESSION: Nonvisualization of the gallbladder. Patent common bile duct. Abdomen/Pelvis CT 01/24/19 00:58 IMPRESSION: Acute calculus cholecystitis. TECHNICAL DOCUMENTATION: Quality ID # 436: Final reports with documentation of one or more dose reduction techniques (e.g., Automated exposure control, adjustment of the mA and/or kV according to patient size, use of iterative reconstruction technique) copyright 2010 [employer]- All Rights Reserved Assessment & Plan - Diagnosis (1) Cholelithiasis Is this a current diagnosis for this admission?: Yes (2) Acute kidney injury Is this a current diagnosis for this admission?: Yes (3) COPD (chronic obstructive pulmonary disease) Is this a current diagnosis for this admission?: Yes - Plan Summary Plan Summary: Hida scan is abnormal. Has acute cholecystitis. He remains fairly comfortable. Hungry. Have just discussed the case with Hospitalist who will optimize his medical condition but claims he should be cleared for surgery. Patient uses O2 at home. Plan is to do Lap Satish in am. Will give him a low fat diet now then NPO from midnight. Will continue IV antibiotics Patient and family agreeable with this plan.
[2019-01-24] MEDS: NORMAL SALINE 1000 ML 1,000 ML IV PRN ×2 (19:25→23:08)
[2019-01-24] MEDS ORDERED: MONTELUKAST SODIUM 10 MG TABLET PO SCH (22:00)
[2019-01-25] MEDS: INSULIN LISPRO 100 UNIT/ML 3 ML VIAL SUBCUT SCH ×4 (00:50→17:56)
[2019-01-25] MEDS ORDERED: TRAZODONE HCL 50 MG TABLET PO ONE (01:00)
[2019-01-25] MEDS: PIPERACILLIN SODIUM/TAZOBACTAM 3.375 GM in NORMAL SALINE 100 ML IV SCH ×4 (04:22→21:01)
[2019-01-25] MEDS: HEPARIN SOD (PORCINE) 5,000 UNIT/ML 1 ML VIAL SUBCUT SCH ×3 (05:28→21:02)
[2019-01-25 07:28] LABS: ABSOLUTE EOSINOPHILS # (AUTO) 0.1 10^3/uL (0.0-0.6); ABSOLUTE LYMPHOCYTES (AUTO) 0.7 10^3/uL (0.5-4.7); ABSOLUTE MONOCYTES (AUTO) 0.3 10^3/uL (0.1-1.4); ABSOLUTE NEUT (AUTO) 3.7 10^3/uL (1.7-8.2); BASOPHILS % (AUTO) 0.3 % (0-2); EOSINOPHILS % (AUTO) 1.6 % (0-6); HEMATOCRIT 36.9 % (37.9-51.0); HEMOGLOBIN 12.1 g/dL (13.5-17.0); LYMPHOCYTES % (AUTO) 15.3 % (13-45); MEAN CORPUSCULAR HEMOGLOBIN 30.2 pg (27.0-33.4); MEAN CORPUSCULAR HGB CONC 32.9 g/dL (32.0-36.0); MEAN CORPUSCULAR VOLUME 92 fl (80-97); MONOCYTES % (AUTO) 5.7 % (3-13); PLATELET COUNT 109 10^3/uL (150-450); RED BLOOD COUNT 4.02 10^6/uL (4.35-5.55); RED CELL DISTRIBUTION WIDTH 14.9 % (11.5-14.0); SEGMENTED NEUTROPHILS % (AUTO) 77.1 % (42-78); TOTAL CELLS COUNTED % (AUTO) 100 %; WHITE BLOOD COUNT 4.8 10^3/uL (4.0-10.5)
[2019-01-25 07:46] LABS: ALBUMIN 2.8 g/dL (3.5-5.0); ALKALINE PHOSPHATASE 66 U/L (38-126); ANION GAP 5 (5-19); ASPARTATE AMINO TRANSFERASE 16 U/L (17-59); BILIRUBIN,DIRECT 0.4 mg/dL (0.0-0.4); BILIRUBIN,TOTAL 0.6 mg/dL (0.2-1.3); BLOOD UREA NITROGEN 43 mg/dL (7-20); CALCIUM 7.9 mg/dL (8.4-10.2); CARBON DIOXIDE 28 mmol/L (22-30); CHLORIDE 111 mmol/L (98-107); GLUCOSE 92 mg/dL (75-110); POTASSIUM 4.2 mmol/L (3.6-5.0); TOTAL PROTEIN 5.6 g/dL (6.3-8.2)
[2019-01-25] MEDS ORDERED: BUPIVACAINE HCL 0.25 % INJ/PF (2.5 MG/1 ML) 30 ML VIAL ONE (07:47)
[2019-01-25] MEDS: IPRATROPIUM/ALBUTEROL 0.5-2.5 MG/3 ML AMPUL NEB SCH ×2 (08:28→20:53)
[2019-01-25] MEDS ORDERED: IPRATROPIUM/ALBUTEROL 0.5-2.5 MG/3 ML AMPUL NEB ONE (08:53)
[2019-01-25] MEDS: DOCUSATE SODIUM 100 MG CAPSULE PO SCH ×2 (09:22→18:47)
[2019-01-25] MEDS ORDERED: MORPHINE SULFATE 10 MG/ML INJ ONE (09:50)
[2019-01-25] MEDS ORDERED: PROPOFOL INJ 200 MG/20 ML VIAL IV ONE (09:50)
[2019-01-25] MEDS ORDERED: MIDAZOLAM 2 MG/2 ML INJ ONE (09:50)
[2019-01-25] MEDS ORDERED: FENTANYL CITRATE INJ/PF 100 MCG/2 ML AMPUL ONE (09:50)
--- NOTE | 2019-01-25 12:20 | Operative Report ---
Operative Report DATE OF SURGERY: 01/25/19 PREOPERATIVE DIAGNOSIS: Acute cholecystitis with cholelithiasis POSTOPERATIVE DIAGNOSIS: Same with purulent cholecystitis OPERATION: 1. Laparoscopic cholecystectomy. 2. Extremely difficult modifier. 3. Drainage of sub-hepatic space SURGEON: AMY ROSADO 1ST ASSOCIATE FINANCIAL ANALYST: PABLO FORTE ANESTHESIA: GA TISSUE REMOVED OR ALTERED: Gallbladder with contents COMPLICATIONS: None ESTIMATED BLOOD LOSS: 250 cc INTRAOPERATIVE FINDINGS: Liver consistent with chronic cirrhosis; acute, pregangrenous cholecystitis with very large gallstone PROCEDURE: The patient was seen in the preop holding area, then taken to the main operating room [facility] where general anesthesia was induced. Arms were abducted, abdomen exposed, skin hair clipped, abdomen prepped draped sterile fashion Surgical plan surgical timeout were conducted. Markings were made on the skin for for port laparoscopy. Sites were anesthetized with quarter percent Marcaine, and a supraumbilical vertical incision was made with a knife. Veress needle was inserted the peritoneal cavity pneumoperitoneum was established. Veress needle was removed, 5 mm ports inserted and a 5 mm flexible viewing scope was inserted Under direct visualization, 3 additional 5 mm ports were inserted in the subxiphoid and subcostal positions Findings were significant for an acutely inflamed gallbladder, with a gastroduodenum stuck up against the inferior surface of the gallbladder as well as the transverse colon. Using a combination of blunt, suction, and LigaSure dissection, attachments between the inferior surface of the gallbladder and the above structures were taken down. The gallbladder was aspirated of bile, then pus, approximately 20 cc. 1/5 port was inserted in the mid right upper quadrant and the fan used for optimizing retraction of the. We did start taking the gallbladder down from the fundus but got into a moderate amount of bleeding. Therefore this approach was aborted. We brought Dr. Forte into the operating room, and first assisted throughout the remainder of the dissection which is very tedious. We switched our Asperger's around, and approach to the infundibulum. The supraumbilical port was switched over to a 10 mm and a 10 mm scope was visualized for the duration of the dissection. The dissection was very difficult due to bleeding, scarring, pus, and obliteration of tissue planes. Because of the increased time, proximally 1 hour for this operation, and the requirement of a second skilled surgeon, as well as 1/5 port, the extremely difficult modifier was applied. Photos were taken throughout the dissection. To open up the infundibulum and its junction with the cystic duct. This area was dissected that using a combination of gentle suction and electrocautery dissection. The cystic artery and the cystic duct were in the classic locations, and appeared normal with normal caliber me once the adhesions were taken down. The cystic duct was surrounded with a right angle clamp. We felt the critical view had been obtained. Photo obtained as well. The cystic duct was clipped twice proximally once distally divided with scissors. Dissected out the cystic artery. It was very short in length coming off of the right hepatic artery. Photos were taken, and the cystic artery was clipped twice proximally once distally divided with scissors. I removed the gallbladder from the LigaSure dissection. The gallbladder, and contents were placed in Endobag and brought out of the patient to the supraumbilical port site after extending the fascial defect for several centimeters We returned the peritoneal cavity and checked for bleeding and there was oozing coming from the liver bed. This was managed with gentle electrocautery, and several applications of a Surgicel. This did drain through 1 of the right upper quadrant port site holes and secured into position with 2-0 Prolene suture. The drain was trimmed to the great length, and the Semilente tucked into the subhepatic space. The patient was leveled out, additional irrigation performed, and operation felt to be concluded and the patient safe for closure. Pneumoperitoneum was evacuated, all ports removed, supraumbilical fascial defect closed with 3 interrupted 0 PDS sutures. All incisions of the skin level closed with 3-0 Vicryl suture. Sterile dressings were applied, and a abdominal binder applied Because of the patient's advanced COPD and prolonged operation, we felt that leaving the patient intubated and transferred to the ICU for ventilatory support would be the best course of action. This was affected patient was transferred from the operating room to the ICU in stable but guarded condition.
[2019-01-25] MEDS ORDERED: ROCURONIUM BROMIDE INJ 50 MG/5 ML VIAL IV ONE (12:32)
[2019-01-25] MEDS ORDERED: SUCCINYLCHOLINE CHLORIDE INJ 200 MG/10 ML VIAL ONE (12:32)
[2019-01-25] MEDS ORDERED: PHENYLEPHRINE HCL INJ/PF 10 MG/1 ML SDV ONE (12:32)
[2019-01-25] MEDS ORDERED: PROPOFOL 1,000 MG/100 ML INFUS..BTL IV ONE (12:36)
[2019-01-25] MEDS: PROPOFOL 1,000 MG/100 ML INFUS..BTL IV PRN ×3 (13:30→21:03)
--- NOTE | 2019-01-25 13:30 | CRITICAL CARE ADMISSION REPORT ---
HPI Date:: 01/25/19 Time:: 13:14 HPI: LYNN MCRAE is a 78 year old male with history of diabetes mellitus and severe COPD on home oxygen complaining of intermittent right upper quadrant pains after fatty meals in the past few weeks. He was actually admitted for increasing shortness of breath and fever. He had a finding of gallstones with mild thickened gallbladder wall and a CAT scan of the abdomen. He says his pains are usually in the right upper quadrant but this morning when seen claims the pain have subsided without any pain medication. I ordered a HIDA scan to make sure there is acute cholecystitis since he is high risk for any operation at this time. - Diagnosis/Plan (3) COPD (chronic obstructive pulmonary disease) Qualifiers: COPD type: COPD with acute exacerbation Qualified Code(s): J44.1 - Chronic obstructive pulmonary disease with (acute) exacerbation (4) Calculus of gallbladder with cholecystitis Qualifiers: Cholecystitis acuity: acute Biliary obstruction: with biliary obstruction Qualified Code(s): K80.01 - Calculus of gallbladder with acute cholecystitis with obstruction (6) Thrombocytopenia Is this a current diagnosis for this admission?: Yes Plan: The patient apparently has chronic thrombocytopenia. In looking back at his previous labs we see that he has had thrombocytopenia going back at least 5-6 years. I am unsure ewhat the etiolgy of his thrombocytopenia is. Past Medical History Cardiac Medical History: Reports: Hypertension Denies: Myocardial Infarction Pulmonary Medical History: Reports: Asthma, Chronic Obstructive Pulmonary Disease (COPD) Denies: Tuberculosis Neurological Medical History: Denies: Seizures Endocrine Medical History: Reports: Diabetes Mellitus Type 2 GI Medical History: Reports: Gastroesophageal Reflux Disease Denies: Hepatitis, Hiatal Hernia Musculoskeltal Medical History: Reports: Arthritis - Rheumatoid arthritis Hematology: Denies: Anemia, Sickle Cell Disease Past Surgical History Past Surgical History: Denies: Pacemaker Social/Family History - Social History Lives with: Family Smoking Status: Never Smoker Frequency of Alcohol Use: Rare Hx Recreational Drug Use: No Drugs: None Hx Prescription Drug Abuse: No - Medication/Allergies Home Medications: Albuterol Sulfate [Ventolin Hfa] 2 units PO PRN PRN 04/20/13 Furosemide [Lasix] 20 mg PO DAILY 04/20/13 Glimepiride [Amaryl 4 mg Tablet] 4 mg PO DAILY 04/20/13 Levothyroxine Sodium [Unithroid] 50 mcg PO DAILY 04/20/13 Metformin HCl [Glucophage 500 mg Tablet] 500 mg PO BID 04/20/13 Montelukast Sodium 10 mg PO DAILY 04/20/13 Diclofenac Sodium 75 mg PO BID 01/24/19 Gabapentin [Neurontin 300 mg Capsule] 300 mg PO TID 01/24/19 Levothyroxine Sodium [Synthroid] 200 mcg PO DAILY 01/24/19 Losartan Potassium [Cozaar 100 mg Tablet] 100 mg PO DAILY 01/24/19 Omeprazole 20 mg PO DAILY 01/24/19 Oxycodone HCl [Oxycodone HCl 10 MG Tablet] 10 mg PO Q4HP PRN 01/24/19 Quetiapine Fumarate [Seroquel] 25 mg PO TID 01/24/19 Tamsulosin HCl [Flomax] 0.4 mg PO DAILY 01/24/19 Trazodone HCl 50 mg PO QPM 01/24/19 Allergies/Adverse Reactions: No Known Allergies Allergy (Verified 01/23/19 18:20) Physical Exam Vital Signs: Temp Pulse Resp BP Pulse Ox 98.1 F 66 20 125/56 L 95 01/25/19 08:41 01/25/19 08:41 01/25/19 08:41 01/25/19 08:41 01/25/19 12:40 Intake & Output 01/24/19 01/25/19 01/26/19 06:59 06:59 06:59 Intake Total 1000 1979 2600 Output Total 625 2965 Balance 1000 1354 -365 Weight 118.3 kg 92.6 kg Weight/Height Weight 92.6 kg Height 6 ft 1 in General appearance: PRESENT: no acute distress Head exam: PRESENT: atraumatic, normocephalic Eye exam: PRESENT: conjunctiva pink, EOMI, PERRLA. ABSENT: scleral icterus Ear exam: PRESENT: normal external ear exam Mouth exam: PRESENT: moist, tongue midline Neck exam: ABSENT: carotid bruit, JVD, lymphadenopathy, thyromegaly Respiratory exam: PRESENT: clear to auscultation cristal. ABSENT: rales, rhonchi, wheezes Cardiovascular exam: PRESENT: RRR. ABSENT: diastolic murmur, rubs, systolic murmur Pulses: PRESENT: normal dorsalis pedis pul Vascular exam: PRESENT: normal capillary refill GI/Abdominal exam: PRESENT: normal bowel sounds, soft. ABSENT: distended, guarding, mass, organolmegaly, rebound, tenderness Rectal exam: PRESENT: deferred Extremities exam: PRESENT: full ROM. ABSENT: calf tenderness, clubbing, pedal edema Musculoskeletal exam: PRESENT: full ROM Neurological exam: PRESENT: alert, awake, oriented to person, oriented to place, oriented to time, oriented to situation, CN II-XII grossly intact. ABSENT: motor sensory deficit Psychiatric exam: PRESENT: appropriate affect, normal mood. ABSENT: homicidal ideation, suicidal ideation Skin exam: PRESENT: dry, intact, warm. ABSENT: cyanosis, rash Laboratory/Radiographs Laboratory Results: 01/25/19 06:58 01/25/19 06:58 01/25/19 01/25/19 01/25/19 06:58 06:58 09:37 WBC 4.8 RBC 4.02 L Hgb 12.1 L Hct 36.9 L MCV 92 MCH 30.2 MCHC 32.9 RDW 14.9 H Plt Count 109 L Seg Neutrophils % 77.1 Sodium 144.2 Potassium 4.2 Chloride 111 H Carbon Dioxide 28 Anion Gap 5 BUN 43 H Creatinine 1.07 Est GFR ( Amer) > 60 Glucose 92 Calcium 7.9 L Total Bilirubin 0.6 AST 16 L Alkaline Phosphatase 66 Total Protein 5.6 L Albumin 2.8 L Blood Type O POSITIVE Antibody Screen NEGATIVE 01/23/19 18:50 Clean Catch Midstream Urine Culture - Final NO GROWTH 2 DAYS Impressions: Chest X-Ray 01/23/19 20:41 IMPRESSION: No evidence of acute cardiopulmonary disease. Head CT 01/23/19 22:24 IMPRESSION: No acute intracranial abnormality. Mild chronic microvascular ischemic change and generalized atrophy. TECHNICAL DOCUMENTATION: Quality ID # [id number]: Final reports with documentation of one or more dose reduction techniques (e.g., Automated exposure control, adjustment of the mA and/or kV according to patient size, use of iterative reconstruction technique) copyright 2011 [employer]- All Rights Reserved Hepatobiliary Scan Nuclear Medicine 01/24/19 00:00 IMPRESSION: Nonvisualization of the gallbladder. Patent common bile duct. Abdomen/Pelvis CT 01/24/19 00:58 IMPRESSION: Acute calculus cholecystitis. TECHNICAL DOCUMENTATION: Quality ID # [id number]: Final reports with documentation of one or more dose reduction techniques (e.g., Automated exposure control, adjustment of the mA and/or kV according to patient size, use of iterative reconstruction technique) copyright 2011 [employer]- All Rights Reserved Critical Time Critical Time (minutes): 45 -: The care of a critically ill patient is dynamic. This note represents a static moment in the admission process. orders and treatments may be given simulataneously and urgentl, and time is not parts counter representative of the treatment process. This patient requires Critical Care secondary to life threating organ or limb dysfunction. Without the need for Critical Care services, the patient is at risk for increasid mortality and morbidity. Assessment & Plan - Diagnosis (1) Acute encephalopathy Is this a current diagnosis for this admission?: Yes Plan: The patient was altered due ti SIRS and hsi acute cholecystitis (2) Acute kidney injury Is this a current diagnosis for this admission?: Yes Plan: The patient presented with acute illness secondary to acute cholecystitis. His creatinine has returned to baseline after fluid resuscitation (3) COPD (chronic obstructive pulmonary disease) Qualifiers: COPD type: COPD with acute exacerbation Qualified Code(s): J44.1 - Chronic obstructive pulmonary disease with (acute) exacerbation Is this a current diagnosis for this admission?: Yes Plan: Phill romo[atient has a history of COPD. I believe he is on nasal 02 at home (4) Calculus of gallbladder with cholecystitis Qualifiers: Cholecystitis acuity: acute Biliary obstruction: with biliary obstruction Qualified Code(s): K80.01 - Calculus of gallbladder with acute cholecystitis with obstruction Is this a current diagnosis for this admission?: Yes Plan: The patient was found to have cholecystitis on CT scan and hepatobiliary scan. He was taken to the OR today and had resectionof the gallbladder. Apparently the gallbladder was gangrenous and the surgery took longer than expected. The patient was left intubated. There were some concerns of possible hemodynamic instability after thesurgery so he was elft intubated and brought to the ICU for recovery. (5) Cholelithiasis Is this a current diagnosis for this admission?: Yes (6) Thrombocytopenia Is this a current diagnosis for this admission?: Yes
[2019-01-25] MEDS ORDERED: PHARMACY COMMUNICATION ORDER MC NR (13:45)
[2019-01-25] MEDS ORDERED: MAG HYDROX/AL HYDROX/SIMETH SUSP 30 ML UDCUP NG PRN (14:00)
--- NOTE | 2019-01-25 14:26 | RADIOLOGY REPORT (SQ) ---
EXAM DESCRIPTION: CHEST SINGLE VIEW COMPLETED DATE/TIME: 01/25/2019 2:08 pm REASON FOR STUDY: s/p intubation , NGtube placement COMPARISON: 01/23/2019 NUMBER OF VIEWS: One view. TECHNIQUE: Single frontal radiographic image of the chest acquired. LIMITATIONS: None. FINDINGS: ENDOTRACHEAL TUBE: Appropriate location. OTHER SUPPORT DEVICES: NG tube tip overlies the body of the stomach, side-port slightly below the reg ion of the GE junction. CHANGES IN RADIOGRAPHIC FINDINGS: Similar bibasilar opacities. HARDWARE: None in the chest. OTHER: No other significant finding. IMPRESSION: NG tube tip overlies the body of the stomach, side-port slightly below the region of the GE junction.STABLE APPEARANCE OF THE CHEST. TECHNICAL DOCUMENTATION: JOB ID: [id number] [place]-72 2010 [employer]- All Rights Reserved Reading location - IP/workstation name: [email or web address]
[2019-01-25 14:30] LABS: ARTERIAL BLOOD H2CO3 1.52 mmol/L (1.05-1.35); ARTERIAL BLOOD HCO3 20.7 mmol/L (20-24); ARTERIAL BLOOD O2 SATURATION 96.5 % (94-98); ARTERIAL BLOOD PCO2 50.5 mmHg (35-45); ARTERIAL BLOOD PH 7.23 (7.35-7.45); ARTERIAL BLOOD PO2 100.7 mmHg (80-100); ARTERIAL BLOOD TOTAL CO2 22.3 mmol/L (23-27)
[2019-01-25 14:31] LABS: ARTERIAL BLOOD FIO2 50%
[2019-01-25] MEDS: FAMOTIDINE INJ/PF 20 MG/2 ML SDV IV SCH ×2 (15:39→21:02)
[2019-01-25] MEDS: ACETAMINOPHEN 325 MG TABLET NG PRN ×2 (15:40→21:01)
[2019-01-25] MEDS: RINGERS SOLUTION,LACTATED 1,000 ML IV PRN (15:40)
[2019-01-25 16:22] LABS: ARTERIAL BLOOD H2CO3 1.47 mmol/L (1.05-1.35); ARTERIAL BLOOD PCO2 48.7 mmHg (35-45); ARTERIAL BLOOD PH 7.27 (7.35-7.45); ARTERIAL BLOOD PO2 123.3 mmHg (80-100); ARTERIAL BLOOD TOTAL CO2 23.5 mmol/L (23-27)
[2019-01-25 16:23] LABS: ARTERIAL BLOOD FIO2 50%
[2019-01-25] MEDS: TRAZODONE HCL 50 MG TABLET NG SCH (21:03)
[2019-01-25] MEDS: MONTELUKAST SODIUM 10 MG TABLET NG SCH (21:04)
[2019-01-26] MEDS: INSULIN LISPRO 100 UNIT/ML 3 ML VIAL SUBCUT SCH ×4 (00:37→19:10)
[2019-01-26] MEDS: PROPOFOL 1,000 MG/100 ML INFUS..BTL IV PRN ×4 (01:32→11:24)
[2019-01-26] MEDS: PIPERACILLIN SODIUM/TAZOBACTAM 3.375 GM in NORMAL SALINE 100 ML IV SCH ×4 (02:05→20:16)
[2019-01-26] MEDS: RINGERS SOLUTION,LACTATED 1,000 ML IV PRN ×4 (02:05→22:42)
[2019-01-26 03:54] LABS: ABSOLUTE LYMPHOCYTES (AUTO) 0.8 10^3/uL (0.5-4.7); ABSOLUTE MONOCYTES (AUTO) 0.3 10^3/uL (0.1-1.4); ABSOLUTE NEUT (AUTO) 5.4 10^3/uL (1.7-8.2); BASOPHILS % (AUTO) 0.2 % (0-2); EOSINOPHILS % (AUTO) 0.6 % (0-6); HEMATOCRIT 30.6 % (37.9-51.0); HEMOGLOBIN 10.2 g/dL (13.5-17.0); LYMPHOCYTES % (AUTO) 11.7 % (13-45); MEAN CORPUSCULAR HEMOGLOBIN 30.6 pg (27.0-33.4); MEAN CORPUSCULAR HGB CONC 33.4 g/dL (32.0-36.0); MEAN CORPUSCULAR VOLUME 92 fl (80-97); PLATELET COUNT 114 10^3/uL (150-450); RED BLOOD COUNT 3.34 10^6/uL (4.35-5.55); RED CELL DISTRIBUTION WIDTH 14.8 % (11.5-14.0); SEGMENTED NEUTROPHILS % (AUTO) 82.5 % (42-78); TOTAL CELLS COUNTED % (AUTO) 100 %; WHITE BLOOD COUNT 6.6 10^3/uL (4.0-10.5)
[2019-01-26 04:17] LABS: ANION GAP 5 (5-19); BLOOD UREA NITROGEN 45 mg/dL (7-20); CALCIUM 7.6 mg/dL (8.4-10.2); CARBON DIOXIDE 26 mmol/L (22-30); CHLORIDE 113 mmol/L (98-107); GLUCOSE 120 mg/dL (75-110); POTASSIUM 4.2 mmol/L (3.6-5.0)
[2019-01-26] MEDS: HEPARIN SOD (PORCINE) 5,000 UNIT/ML 1 ML VIAL SUBCUT SCH ×3 (05:22→22:41)
[2019-01-26 05:36] LABS: ARTERIAL BLOOD FIO2 40%; ARTERIAL BLOOD H2CO3 1.02 mmol/L (1.05-1.35); ARTERIAL BLOOD HCO3 22.7 mmol/L (20-24); ARTERIAL BLOOD PCO2 33.8 mmHg (35-45); ARTERIAL BLOOD PH 7.45 (7.35-7.45); ARTERIAL BLOOD PO2 102.8 mmHg (80-100); ARTERIAL BLOOD TOTAL CO2 23.7 mmol/L (23-27)
--- NOTE | 2019-01-26 08:15 | RADIOLOGY REPORT (SQ) ---
EXAM DESCRIPTION: CHEST SINGLE VIEW COMPLETED DATE/TIME: 01/26/2019 6:26 am REASON FOR STUDY: Post Op Day #1 Tube Placement COMPARISON: 01/25 FINDINGS: Single-view chest AP portable upright. Endotracheal and nasogastric tubes look appropriate. Numerous extra lead artifacts also noted. Low lung volumes with basilar subsegmental atelectasis but aeration globally look slightly improved. No suggestion of pneumothorax. TECHNICAL DOCUMENTATION: JOB ID: [id number] Reading location - IP/workstation name: [email or web address]
[2019-01-26] MEDS ORDERED: RINGERS SOLUTION,LACTATED 500 ML IV ONE (08:30)
[2019-01-26] MEDS: IPRATROPIUM/ALBUTEROL 0.5-2.5 MG/3 ML AMPUL NEB SCH ×2 (08:50→20:42)
--- NOTE | 2019-01-26 09:00 | PDOC PROGRESS REPORT ---
Subjective Progress Note for:: 02/02/19 Subjective:: The patient is POD #1. He remains on the ventilator. he appears comfortable. his urine oputput has been a little slugggish and hsi bp a l;ittle low. we have bumped up iV fluids. His CXR shows some atelectatic changes at the right base. ABG was statisfactory on 40% FI02 Reason For Visit: ACUTE SATISH,SEPSIS,AMS,ARF Physical Exam Vital Signs: Temp Pulse Resp BP Pulse Ox 99.7 F 66 18 91/48 L 98 01/26/19 08:00 01/25/19 21:00 01/26/19 08:00 01/26/19 07:18 01/26/19 08:00 Intake & Output 01/25/19 01/26/19 01/27/19 06:59 06:59 06:59 Intake Total 1979 5163 72 Output Total 625 4205 25 Balance 1354 958 47 Weight 92.6 kg 119.9 kg General appearance: PRESENT: no acute distress Eye exam: PRESENT: conjunctiva pink Ear exam: PRESENT: normal external ear exam Respiratory exam: PRESENT: unlabored. ABSENT: accessory muscle use, rales Cardiovascular exam: PRESENT: RRR, +S1, +S2 Pulses: PRESENT: +1 pedal pulses bilateral, +2 pedal pulses bilateral GI/Abdominal exam: PRESENT: distended, normal bowel sounds Rectal exam: PRESENT: deferred Extremities exam: PRESENT: full ROM Results Laboratory Results: 01/26/19 03:31 01/26/19 03:31 01/25/19 01/25/19 01/25/19 09:37 14:00 16:00 WBC RBC Hgb Hct MCV MCH MCHC RDW Plt Count Seg Neutrophils % Carbonic Acid 1.52 H 1.47 H HCO3/H2CO3 Ratio 13:1 14:1 ABG pH 7.23 L 7.27 L ABG pCO2 50.5 H 48.7 H ABG pO2 100.7 H 123.3 H ABG HCO3 20.7 22.0 ABG O2 Saturation 96.5 98.0 ABG Base Excess -7.0 -5.0 FiO2 50% 50% Sodium Potassium Chloride Carbon Dioxide Anion Gap BUN Creatinine Est GFR ( Amer) Glucose Calcium Blood Type O POSITIVE Antibody Screen NEGATIVE 01/26/19 01/26/19 01/26/19 03:31 03:31 05:11 WBC 6.6 RBC 3.34 L Hgb 10.2 L Hct 30.6 L MCV 92 MCH 30.6 MCHC 33.4 RDW 14.8 H Plt Count 114 L Seg Neutrophils % 82.5 H Carbonic Acid 1.02 L HCO3/H2CO3 Ratio 22:1 ABG pH 7.45 ABG pCO2 33.8 L ABG pO2 102.8 H ABG HCO3 22.7 ABG O2 Saturation 98.0 ABG Base Excess -1.0 FiO2 40% Sodium 143.9 Potassium 4.2 Chloride 113 H Carbon Dioxide 26 Anion Gap 5 BUN 45 H Creatinine 1.23 Est GFR ( Amer) > 60 Glucose 120 H Calcium 7.6 L Blood Type Antibody Screen 01/23/19 18:50 Clean Catch Midstream Urine Culture - Final NO GROWTH 2 DAYS Impressions: Head CT 01/23/19 22:24 IMPRESSION: No acute intracranial abnormality. Mild chronic microvascular ischemic change and generalized atrophy. TECHNICAL DOCUMENTATION: Quality ID # 436: Final reports with documentation of one or more dose reduction techniques (e.g., Automated exposure control, adjustment of the mA and/or kV according to patient size, use of iterative reconstruction technique) copyright 2010 [employer]- All Rights Reserved Hepatobiliary Scan Nuclear Medicine 01/24/19 00:00 IMPRESSION: Nonvisualization of the gallbladder. Patent common bile duct. Abdomen/Pelvis CT 01/24/19 00:58 IMPRESSION: Acute calculus cholecystitis. TECHNICAL DOCUMENTATION: Quality ID # 436: Final reports with documentation of one or more dose reduction techniques (e.g., Automated exposure control, adjustment of the mA and/or kV according to patient size, use of iterative reconstruction technique) copyright 2010 [employer]- All Rights Reserved Assessment & Plan - Diagnosis (1) Acute encephalopathy Is this a current diagnosis for this admission?: Yes Plan: The patient was altered due ti SIRS and hsi acute cholecystitis (2) Acute kidney injury Is this a current diagnosis for this admission?: Yes (3) COPD (chronic obstructive pulmonary disease) Qualifiers: COPD type: COPD with acute exacerbation Qualified Code(s): J44.1 - Chronic obstructive pulmonary disease with (acute) exacerbation Is this a current diagnosis for this admission?: Yes Plan: Phill romo[atient has a history of COPD. I believe he is on nasal 02 at home 01/26 Will try thepoatient on CPAP today and I am hopeful he will wean. (4) Calculus of gallbladder with cholecystitis Qualifiers: Cholecystitis acuity: acute Biliary obstruction: with biliary obstruction Qualified Code(s): K80.01 - Calculus of gallbladder with acute cholecystitis with obstruction Is this a current diagnosis for this admission?: Yes (5) Cholelithiasis Is this a current diagnosis for this admission?: Yes (6) Thrombocytopenia Is this a current diagnosis for this admission?: Yes Plan: Mikayla shepherd to transfiuse platlets. His platelet count is chronically low but not dangerously so. - Time Time Spent with patient: 35 or more minutes Anticipated discharge: Home Within: within 72 hours
[2019-01-26] MEDS: FAMOTIDINE INJ/PF 20 MG/2 ML SDV IV SCH ×2 (09:13→22:40)
[2019-01-26] MEDS: DOCUSATE SODIUM 100 MG CAPSULE PO SCH ×2 (09:18→18:09)
--- NOTE | 2019-01-26 10:20 | PDOC PROGRESS REPORT ---
Subjective Progress Note for:: 01/26/19 Subjective:: Patient intubated, sedation being discontinued; Remains in the intensive care unit; no issues overnight Reason For Visit: ACUTE SATISH,SEPSIS,AMS,ARF Physical Exam Vital Signs: Temp Pulse Resp BP Pulse Ox 99.7 F 63 18 91/48 L 94 01/26/19 08:00 01/26/19 09:52 01/26/19 08:50 01/26/19 07:18 01/26/19 08:50 Intake & Output 01/25/19 01/26/19 01/27/19 06:59 06:59 06:59 Intake Total 1979 5163 119 Output Total 625 4205 25 Balance 1354 958 94 Weight 92.6 kg 119.9 kg General appearance: PRESENT: other - Sedated with support lines in place GI/Abdominal exam: PRESENT: other - Abdomen mildly distended. Serosanguineous drainage in right upper quadrant drain as well as around drain; laparoscopic incisions otherwise dry and intact Results Laboratory Results: 01/26/19 03:31 01/26/19 03:31 01/25/19 01/25/19 01/25/19 09:37 14:00 16:00 WBC RBC Hgb Hct MCV MCH MCHC RDW Plt Count Seg Neutrophils % Carbonic Acid 1.52 H 1.47 H HCO3/H2CO3 Ratio 13:1 14:1 ABG pH 7.23 L 7.27 L ABG pCO2 50.5 H 48.7 H ABG pO2 100.7 H 123.3 H ABG HCO3 20.7 22.0 ABG O2 Saturation 96.5 98.0 ABG Base Excess -7.0 -5.0 FiO2 50% 50% Sodium Potassium Chloride Carbon Dioxide Anion Gap BUN Creatinine Est GFR ( Amer) Glucose Calcium Blood Type O POSITIVE Antibody Screen NEGATIVE 01/26/19 01/26/19 01/26/19 03:31 03:31 05:11 WBC 6.6 RBC 3.34 L Hgb 10.2 L Hct 30.6 L MCV 92 MCH 30.6 MCHC 33.4 RDW 14.8 H Plt Count 114 L Seg Neutrophils % 82.5 H Carbonic Acid 1.02 L HCO3/H2CO3 Ratio 22:1 ABG pH 7.45 ABG pCO2 33.8 L ABG pO2 102.8 H ABG HCO3 22.7 ABG O2 Saturation 98.0 ABG Base Excess -1.0 FiO2 40% Sodium 143.9 Potassium 4.2 Chloride 113 H Carbon Dioxide 26 Anion Gap 5 BUN 45 H Creatinine 1.23 Est GFR ( Amer) > 60 Glucose 120 H Calcium 7.6 L Blood Type Antibody Screen 01/23/19 18:50 Clean Catch Midstream Urine Culture - Final NO GROWTH 2 DAYS Impressions: Head CT 01/23/19 22:24 IMPRESSION: No acute intracranial abnormality. Mild chronic microvascular ischemic change and generalized atrophy. TECHNICAL DOCUMENTATION: Quality ID # 436: Final reports with documentation of one or more dose reduction techniques (e.g., Automated exposure control, adjustment of the mA and/or kV according to patient size, use of iterative reconstruction technique) copyright 2010 [employer] All Rights Reserved Hepatobiliary Scan Nuclear Medicine 01/24/19 00:00 IMPRESSION: Nonvisualization of the gallbladder. Patent common bile duct. Abdomen/Pelvis CT 01/24/19 00:58 IMPRESSION: Acute calculus cholecystitis. TECHNICAL DOCUMENTATION: Quality ID # [id number]: Final reports with documentation of one or more dose reduction techniques (e.g., Automated exposure control, adjustment of the mA and/or kV according to patient size, use of iterative reconstruction technique) copyright 2010 [employer]- All Rights Reserved Assessment & Plan - Diagnosis (1) Calculus of gallbladder with cholecystitis Qualifiers: Cholecystitis acuity: acute Biliary obstruction: with biliary obstruction Qualified Code(s): K80.01 - Calculus of gallbladder with acute cholecystitis with obstruction Is this a current diagnosis for this admission?: Yes Plan: Impression: Patient is 1 day status post laparoscopic cholecystectomy right upper quadrant drain for acute, purulent cholecystitis with cholelithiasis, overall doing well, minimal vent support, hemodynamically stable; output acceptable, BUN 45, patient may be intravascularly depleted slightly Recommendations: 1. Continue crystalloid support 2. Check weaning parameters and anticipate extubation 3. Continue intravenous antibiotics, right upper quadrant drain 4. Discussed the above with Dr. Hook and nursing staff
[2019-01-26 11:50] LABS: ARTERIAL BLOOD FIO2 40%; ARTERIAL BLOOD H2CO3 1.11 mmol/L (1.05-1.35); ARTERIAL BLOOD HCO3 25.7 mmol/L (20-24); ARTERIAL BLOOD PCO2 36.9 mmHg (35-45); ARTERIAL BLOOD PH 7.46 (7.35-7.45); ARTERIAL BLOOD PO2 69.9 mmHg (80-100); ARTERIAL BLOOD TOTAL CO2 26.8 mmol/L (23-27)
[2019-01-26] MEDS ORDERED: DEXMEDETOMIDINE IN 0.9 % NACL 400 MCG/100 ML RTUPB IV ONE (15:59)
[2019-01-26] MEDS: DEXMEDETOMIDINE IN 0.9 % NACL 400 MCG/100 ML RTUPB IV PRN ×2 (16:00→22:47)
[2019-01-26] MEDS: ACETAMINOPHEN 325 MG TABLET NG PRN (17:35)
[2019-01-26] MEDS: HYDROMORPHONE HCL INJ/PF 2 MG/ML AMPULE IV PRN (20:17)
[2019-01-26] MEDS: MONTELUKAST SODIUM 10 MG TABLET NG SCH (22:41)
[2019-01-26] MEDS: TRAZODONE HCL 50 MG TABLET NG SCH (22:49)
[2019-01-27] MEDS: INSULIN LISPRO 100 UNIT/ML 3 ML VIAL SUBCUT SCH ×4 (01:47→17:14)
[2019-01-27] MEDS: PIPERACILLIN SODIUM/TAZOBACTAM 3.375 GM in NORMAL SALINE 100 ML IV SCH ×4 (02:54→21:52)
[2019-01-27] MEDS: RINGERS SOLUTION,LACTATED 1,000 ML IV PRN ×4 (03:27→23:34)
[2019-01-27] MEDS: HEPARIN SOD (PORCINE) 5,000 UNIT/ML 1 ML VIAL SUBCUT SCH ×3 (05:45→21:55)
[2019-01-27] MEDS: DEXMEDETOMIDINE IN 0.9 % NACL 400 MCG/100 ML RTUPB IV PRN ×2 (07:01→23:33)
[2019-01-27 08:12] LABS: HEMATOCRIT 34.3 % (37.9-51.0); HEMOGLOBIN 11.3 g/dL (13.5-17.0); MEAN CORPUSCULAR HEMOGLOBIN 30.2 pg (27.0-33.4); MEAN CORPUSCULAR VOLUME 92 fl (80-97); PLATELET COUNT 112 10^3/uL (150-450); RED BLOOD COUNT 3.74 10^6/uL (4.35-5.55); RED CELL DISTRIBUTION WIDTH 14.7 % (11.5-14.0)
[2019-01-27] MEDS: IPRATROPIUM/ALBUTEROL 0.5-2.5 MG/3 ML AMPUL NEB SCH ×2 (08:22→20:46)
[2019-01-27 08:30] LABS: ALBUMIN 2.6 g/dL (3.5-5.0); ALKALINE PHOSPHATASE 51 U/L (38-126); ANION GAP 8 (5-19); ASPARTATE AMINO TRANSFERASE 44 U/L (17-59); BILIRUBIN,DIRECT 0.5 mg/dL (0.0-0.4); BILIRUBIN,TOTAL 0.8 mg/dL (0.2-1.3); BLOOD UREA NITROGEN 27 mg/dL (7-20); CALCIUM 8.2 mg/dL (8.4-10.2); CARBON DIOXIDE 26 mmol/L (22-30); CHLORIDE 112 mmol/L (98-107); GLUCOSE 127 mg/dL (75-110); POTASSIUM 4.4 mmol/L (3.6-5.0); TOTAL PROTEIN 5.5 g/dL (6.3-8.2)
[2019-01-27] MEDS: DOCUSATE SODIUM 100 MG CAPSULE PO SCH ×2 (09:00→19:38)
[2019-01-27] MEDS: FAMOTIDINE INJ/PF 20 MG/2 ML SDV IV SCH ×2 (10:04→21:52)
--- NOTE | 2019-01-27 10:04 | PDOC PROGRESS REPORT ---
Subjective Progress Note for:: 01/27/19 Subjective:: The patient is POD #1. He remains on the ventilator. he appears comfortable. his urine oputput has been a little slugggish and hsi bp a l;ittle low. we have bumped up iV fluids. His CXR shows some atelectatic changes at the right base. ABG was satisfactory on 40% FI02 01/27 The patient remains a little delirious and is still on precedex although the situation has ameliorated some. He pullled out his NGT. He has a bowel sounds and flatus so we are leaving it out His renal fn. has normalized. AZIZA is putting out bloody fluid. Respiratory status is normal Reason For Visit: ACUTE SATISH,SEPSIS,AMS,ARF Physical Exam Vital Signs: Temp Pulse Resp BP Pulse Ox 100.2 F 67 27 H 135/62 H 96 01/27/19 08:50 01/27/19 08:00 01/27/19 08:50 01/27/19 08:50 01/27/19 08:50 Intake & Output 01/26/19 01/27/19 01/28/19 06:59 06:59 06:59 Intake Total 5163 4890 100 Output Total 4205 2545 200 Balance 958 2345 -100 Weight 119.9 kg 120.8 kg General appearance: PRESENT: mild distress, well-developed Eye exam: PRESENT: conjunctiva pink Ear exam: PRESENT: normal external ear exam Mouth exam: PRESENT: moist, neck supple Neck exam: PRESENT: full ROM. ABSENT: JVD, meningismus, tenderness Respiratory exam: PRESENT: clear to auscultation cristal. ABSENT: accessory muscle use, prolonged expiratory phas Cardiovascular exam: PRESENT: irregular rhythm, +S1, +S2 Pulses: PRESENT: normal dorsalis pedis pul Vascular exam: PRESENT: normal capillary refill GI/Abdominal exam: PRESENT: normal bowel sounds, soft. ABSENT: ascites, mass Rectal exam: PRESENT: deferred Extremities exam: PRESENT: full ROM. ABSENT: calf tenderness, joint swelling Musculoskeletal exam: PRESENT: full ROM Neurological exam: PRESENT: alert, altered Psychiatric exam: PRESENT: agitated Results Laboratory Results: 01/27/19 07:58 01/27/19 07:58 01/26/19 01/27/19 01/27/19 11:37 07:58 07:58 WBC 7.0 RBC 3.74 L Hgb 11.3 L Hct 34.3 L MCV 92 MCH 30.2 MCHC 33.0 RDW 14.7 H Plt Count 112 L Carbonic Acid 1.11 HCO3/H2CO3 Ratio 23:1 ABG pH 7.46 H ABG pCO2 36.9 ABG pO2 69.9 L ABG HCO3 25.7 H ABG O2 Saturation 95.0 ABG Base Excess 2.0 FiO2 40% Sodium 145.5 H Potassium 4.4 Chloride 112 H Carbon Dioxide 26 Anion Gap 8 BUN 27 H Creatinine 0.85 Est GFR ( Amer) > 60 Glucose 127 H Calcium 8.2 L Total Bilirubin 0.8 AST 44 Alkaline Phosphatase 51 Total Protein 5.5 L Albumin 2.6 L Impressions: Head CT 01/23/19 22:24 IMPRESSION: No acute intracranial abnormality. Mild chronic microvascular ischemic change and generalized atrophy. TECHNICAL DOCUMENTATION: Quality ID # [id number]: Final reports with documentation of one or more dose reduction techniques (e.g., Automated exposure control, adjustment of the mA and/or kV according to patient size, use of iterative reconstruction technique) copyright 2010 [employer] All Rights Reserved Hepatobiliary Scan Nuclear Medicine 01/24/19 00:00 IMPRESSION: Nonvisualization of the gallbladder. Patent common bile duct. Abdomen/Pelvis CT 01/24/19 00:58 IMPRESSION: Acute calculus cholecystitis. TECHNICAL DOCUMENTATION: Quality ID # [id number]: Final reports with documentation of one or more dose reduction techniques (e.g., Automated exposure control, adjustment of the mA and/or kV according to patient size, use of iterative reconstruction technique) copyright 2010 [employer] All Rights Reserved Assessment & Plan - Diagnosis (1) Calculus of gallbladder with cholecystitis Qualifiers: Cholecystitis acuity: acute Biliary obstruction: with biliary obstruction Qualified Code(s): K80.01 - Calculus of gallbladder with acute cholecystitis with obstruction Is this a current diagnosis for this admission?: Yes Plan: The patient was found to have cholecystitis on CT scan and hepatobiliary scan. He was taken to the OR today and had resectionof the gallbladder. Apparently the gallbladder was gangrenous and the surgery took longer than expected. The patient was left intubated. There were some concerns of possible hemodynamic instability after thesurgery so he was elft intubated and brought to the ICU for recovery. (2) Acute encephalopathy Is this a current diagnosis for this admission?: Yes Plan: The patient was altered due ti SIRS and hsi acute cholecystitis 01/27 His mentla status is slowly improving. He still gets little agitated at times. (3) Acute kidney injury Is this a current diagnosis for this admission?: Yes Plan: The patient presented with acute illness secondary to acute cholecystitis. His creatinine has returned to baseline after fluid resuscitation (4) COPD (chronic obstructive pulmonary disease) Qualifiers: COPD type: COPD with acute exacerbation Qualified Code(s): J44.1 - Chronic obstructive pulmonary disease with (acute) exacerbation Is this a current diagnosis for this admission?: Yes (5) Cholelithiasis Is this a current diagnosis for this admission?: Yes Plan: The patient is s/p lap choley on 01/25. (6) Thrombocytopenia Is this a current diagnosis for this admission?: Yes Plan: Mikayla shepherd to transfiuse platlets. His platelet count is chronically low but not dangerously so. - Time Time Spent with patient: 15-24 minutes Anticipated discharge: Home, Home with Homehealth Within: within 72 hours
--- NOTE | 2019-01-27 11:25 | PDOC PROGRESS REPORT ---
Subjective Progress Note for:: 01/27/19 Subjective:: Easily arousable. Patient pulled out his NG tube. Reason For Visit: ACUTE SATISH,SEPSIS,AMS,ARF Physical Exam Vital Signs: Temp Pulse Resp BP Pulse Ox 100.2 F 66 16 152/78 H 98 01/27/19 08:50 01/27/19 10:00 01/27/19 10:00 01/27/19 10:00 01/27/19 10:00 Intake & Output 01/26/19 01/27/19 01/28/19 06:59 06:59 06:59 Intake Total 5163 4890 1100 Output Total 4205 2545 495 Balance 958 2345 605 Weight 119.9 kg 120.8 kg General appearance: PRESENT: no acute distress, cooperative Respiratory exam: PRESENT: clear to auscultation cristal Cardiovascular exam: PRESENT: RRR GI/Abdominal exam: PRESENT: other - Soft, nondistended, active bowel sounds, moderate tenderness in the right upper quadrant without peritoneal signs. Drain output is blood-tinged but nonbilious. Results Laboratory Results: 01/27/19 07:58 01/27/19 07:58 01/26/19 01/27/19 01/27/19 11:37 07:58 07:58 WBC 7.0 RBC 3.74 L Hgb 11.3 L Hct 34.3 L MCV 92 MCH 30.2 MCHC 33.0 RDW 14.7 H Plt Count 112 L Carbonic Acid 1.11 HCO3/H2CO3 Ratio 23:1 ABG pH 7.46 H ABG pCO2 36.9 ABG pO2 69.9 L ABG HCO3 25.7 H ABG O2 Saturation 95.0 ABG Base Excess 2.0 FiO2 40% Sodium 145.5 H Potassium 4.4 Chloride 112 H Carbon Dioxide 26 Anion Gap 8 BUN 27 H Creatinine 0.85 Est GFR ( Amer) > 60 Glucose 127 H Calcium 8.2 L Total Bilirubin 0.8 AST 44 Alkaline Phosphatase 51 Total Protein 5.5 L Albumin 2.6 L Impressions: Head CT 01/23/19 22:24 IMPRESSION: No acute intracranial abnormality. Mild chronic microvascular ischemic change and generalized atrophy. TECHNICAL DOCUMENTATION: Quality ID # 436: Final reports with documentation of one or more dose reduction techniques (e.g., Automated exposure control, adjustment of the mA and/or kV according to patient size, use of iterative reconstruction technique) copyright 2010 [employer]- All Rights Reserved Hepatobiliary Scan Nuclear Medicine 01/24/19 00:00 IMPRESSION: Nonvisualization of the gallbladder. Patent common bile duct. Abdomen/Pelvis CT 01/24/19 00:58 IMPRESSION: Acute calculus cholecystitis. TECHNICAL DOCUMENTATION: Quality ID # 436: Final reports with documentation of one or more dose reduction techniques (e.g., Automated exposure control, adjustment of the mA and/or kV according to patient size, use of iterative reconstruction technique) copyright 2010 [employer]- All Rights Reserved Assessment & Plan - Diagnosis (1) Calculus of gallbladder with cholecystitis Qualifiers: Cholecystitis acuity: acute Biliary obstruction: with biliary obstruction Qualified Code(s): K80.01 - Calculus of gallbladder with acute cholecystitis with obstruction Is this a current diagnosis for this admission?: Yes Plan: Status post laparoscopic cholecystectomy. Patient looks reasonably well. NG tube output was not high and he does have nondistended abdomen with active bowel sounds therefore will not replace NG. Keep the drain tube in until it clears. We will try to get the patient out of bed.
[2019-01-27] MEDS: HYDROMORPHONE HCL INJ/PF 2 MG/ML AMPULE IV PRN (16:41)
[2019-01-27] MEDS: TRAZODONE HCL 50 MG TABLET NG SCH (21:43)
[2019-01-27] MEDS: MONTELUKAST SODIUM 10 MG TABLET NG SCH (21:43)
[2019-01-28] MEDS: INSULIN LISPRO 100 UNIT/ML 3 ML VIAL SUBCUT SCH ×5 (01:06→23:58)
[2019-01-28] MEDS: PIPERACILLIN SODIUM/TAZOBACTAM 3.375 GM in NORMAL SALINE 100 ML IV SCH ×4 (02:19→20:00)
[2019-01-28 03:02] LABS: ANION GAP 7 (5-19); BLOOD UREA NITROGEN 20 mg/dL (7-20); CALCIUM 8.1 mg/dL (8.4-10.2); CARBON DIOXIDE 28 mmol/L (22-30); CHLORIDE 109 mmol/L (98-107); GLUCOSE 109 mg/dL (75-110); POTASSIUM 4.3 mmol/L (3.6-5.0)
[2019-01-28] MEDS ORDERED: MAGNESIUM SULFATE/D5W 1 GM/100 ML RTUPB IV ONE (03:22)
[2019-01-28] MEDS: MAGNESIUM SULFATE/D5W 1 GM/100 ML RTUPB IV SCH ×4 (03:32→06:35)
[2019-01-28] MEDS: HEPARIN SOD (PORCINE) 5,000 UNIT/ML 1 ML VIAL SUBCUT SCH ×3 (05:25→21:04)
[2019-01-28] MEDS: RINGERS SOLUTION,LACTATED 1,000 ML IV PRN ×3 (06:54→22:00)
[2019-01-28] MEDS: IPRATROPIUM/ALBUTEROL 0.5-2.5 MG/3 ML AMPUL NEB SCH ×2 (08:20→19:20)
[2019-01-28] MEDS: FAMOTIDINE INJ/PF 20 MG/2 ML SDV IV SCH ×2 (09:07→21:04)
[2019-01-28] MEDS: DOCUSATE SODIUM 100 MG CAPSULE PO SCH ×2 (09:07→18:16)
--- NOTE | 2019-01-28 09:08 | PDOC PROGRESS REPORT ---
Subjective Progress Note for:: 01/28/19 Reason For Visit: ACUTE SATISH,SEPSIS,AMS,ARF Physical Exam Vital Signs: Temp Pulse Resp BP Pulse Ox 99.7 F 66 22 H 172/69 H 97 01/28/19 08:21 01/28/19 08:20 01/28/19 08:21 01/28/19 08:21 01/28/19 08:21 Intake & Output 01/27/19 01/28/19 01/29/19 06:59 06:59 06:59 Intake Total 4813 4703 Output Total 2545 2610 560 Balance 2345 2163 -560 Weight 120.8 kg 122.5 kg General appearance: PRESENT: no acute distress Head exam: PRESENT: normocephalic Eye exam: PRESENT: EOMI Mouth exam: PRESENT: moist Neck exam: PRESENT: full ROM Respiratory exam: PRESENT: clear to auscultation cristal Cardiovascular exam: PRESENT: RRR Pulses: PRESENT: normal radial pulses, normal femoral pulses GI/Abdominal exam: PRESENT: diminished bowel sounds, distended - tympanitic, firm Rectal exam: PRESENT: deferred Musculoskeletal exam: PRESENT: full ROM Neurological exam: PRESENT: alert, awake, oriented to person, oriented to place Skin exam: PRESENT: dry Results Laboratory Results: 01/27/19 07:58 01/28/19 02:24 01/28/19 02:24 Sodium 143.7 Potassium 4.3 Chloride 109 H Carbon Dioxide 28 Anion Gap 7 BUN 20 Creatinine 0.76 Est GFR ( Amer) > 60 Glucose 109 Calcium 8.1 L Magnesium 1.2 L* Impressions: Head CT 01/23/19 22:24 IMPRESSION: No acute intracranial abnormality. Mild chronic microvascular ischemic change and generalized atrophy. TECHNICAL DOCUMENTATION: Quality ID # 436: Final reports with documentation of one or more dose reduction techniques (e.g., Automated exposure control, adjustment of the mA and/or kV according to patient size, use of iterative reconstruction technique) copyright 2011 [employer]- All Rights Reserved Hepatobiliary Scan Nuclear Medicine 01/24/19 00:00 IMPRESSION: Nonvisualization of the gallbladder. Patent common bile duct. Abdomen/Pelvis CT 01/24/19 00:58 IMPRESSION: Acute calculus cholecystitis. TECHNICAL DOCUMENTATION: Quality ID # 436: Final reports with documentation of one or more dose reduction techniques (e.g., Automated exposure control, adjustment of the mA and/or kV according to patient size, use of iterative reconstruction technique) copyright 2011 [employer]- All Rights Reserved Assessment & Plan - Diagnosis (1) Calculus of gallbladder with cholecystitis Qualifiers: Cholecystitis acuity: acute Biliary obstruction: with biliary obstruction Qualified Code(s): K80.01 - Calculus of gallbladder with acute cholecystitis with obstruction Is this a current diagnosis for this admission?: Yes - Plan Summary Plan Summary: pt stable h/h stable still iwth distended abd, min if any flatus iam op more serous, no bile precedex stopped this am stable from surgical standpt will cont to follow.
[2019-01-28] MEDS ORDERED: ENALAPRILAT DIHYDRATE INJ/PF 1.25 MG/1 ML SDV IV PRN (09:30)
--- NOTE | 2019-01-28 09:30 | PDOC PROGRESS REPORT ---
Subjective Progress Note for:: 01/28/19 Subjective:: The patient is POD #1. He remains on the ventilator. he appears comfortable. his urine oputput has been a little slugggish and hsi bp a l;ittle low. we have bumped up iV fluids. His CXR shows some atelectatic changes at the right base. ABG was satisfactory on 40% FI02 01/27 The patient remains a little delirious and is still on precedex although the situation has ameliorated some. He pullled out his NGT. He has a bowel sounds and flatus so we are leaving it out His renal fn. has normalized. AZIZA is putting out bloody fluid. Respiratory status is normal 01/28 The patient is nmmore cogent and cooperative. No major issues Claims to be passing gas but belly is pretty silent Reason For Visit: ACUTE SATISH,SEPSIS,AMS,ARF Physical Exam Vital Signs: Temp Pulse Resp BP Pulse Ox 99.7 F 66 22 H 172/69 H 97 01/28/19 08:21 01/28/19 08:20 01/28/19 08:21 01/28/19 08:21 01/28/19 08:21 Intake & Output 01/27/19 01/28/19 01/29/19 06:59 06:59 06:59 Intake Total 4890 4773 57 Output Total 2543 2610 630 Balance 2345 2163 -573 Weight 120.8 kg 122.5 kg General appearance: PRESENT: no acute distress Eye exam: PRESENT: EOMI Ear exam: PRESENT: normal external ear exam Mouth exam: PRESENT: moist Neck exam: ABSENT: meningismus Respiratory exam: ABSENT: accessory muscle use, prolonged expiratory phas Cardiovascular exam: PRESENT: RRR, +S2 Pulses: PRESENT: +2 pedal pulses bilateral GI/Abdominal exam: PRESENT: hypoactive bowel sounds. ABSENT: mass Rectal exam: PRESENT: deferred Musculoskeletal exam: PRESENT: full ROM Neurological exam: PRESENT: alert, awake, oriented to person, oriented to place Psychiatric exam: PRESENT: appropriate affect Results Laboratory Results: 01/27/19 07:58 01/28/19 02:24 01/28/19 02:24 Sodium 143.7 Potassium 4.3 Chloride 109 H Carbon Dioxide 28 Anion Gap 7 BUN 20 Creatinine 0.76 Est GFR ( Amer) > 60 Glucose 109 Calcium 8.1 L Magnesium 1.2 L* Impressions: Head CT 01/23/19 22:24 IMPRESSION: No acute intracranial abnormality. Mild chronic microvascular ischemic change and generalized atrophy. TECHNICAL DOCUMENTATION: Quality ID # 436: Final reports with documentation of one or more dose reduction techniques (e.g., Automated exposure control, adjustment of the mA and/or kV according to patient size, use of iterative reconstruction technique) copyright 2010 [employer]- All Rights Reserved Hepatobiliary Scan Nuclear Medicine 01/24/19 00:00 IMPRESSION: Nonvisualization of the gallbladder. Patent common bile duct. Abdomen/Pelvis CT 01/24/19 00:58 IMPRESSION: Acute calculus cholecystitis. TECHNICAL DOCUMENTATION: Quality ID # 436: Final reports with documentation of one or more dose reduction techniques (e.g., Automated exposure control, adjustment of the mA and/or kV according to patient size, use of iterative reconstruction technique) copyright 2010 [employer]- All Rights Reserved Assessment & Plan - Diagnosis (1) Calculus of gallbladder with cholecystitis Qualifiers: Cholecystitis acuity: acute Biliary obstruction: with biliary obstruction Qualified Code(s): K80.01 - Calculus of gallbladder with acute cholecystitis with obstruction Is this a current diagnosis for this admission?: Yes Plan: The patient was found to have cholecystitis on CT scan and hepatobiliary scan. He was taken to the OR today and had resectionof the gallbladder. Apparently the gallbladder was gangrenous and the surgery took longer than expected. The patient was left intubated. There were some concerns of possible hemodynamic instability after thesurgery so he was elft intubated and brought to the ICU for recovery. 01/28 Has AZIZA with serosanguinous drainage. Abdomen is softy and non-tender. May still have a bit of an ileus. Ther patient took out hisd NGT yesterday. (2) Acute encephalopathy Is this a current diagnosis for this admission?: Yes Plan: The patient was altered due ti SIRS and hsi acute cholecystitis 01/27 His mentla status is slowly improving. He still gets little agitated at times. 01/28 He is cogent and cooperative. He so off Precedex. (3) Acute kidney injury Is this a current diagnosis for this admission?: Yes (4) COPD (chronic obstructive pulmonary disease) Qualifiers: COPD type: COPD with acute exacerbation Qualified Code(s): J44.1 - Chronic obstructive pulmonary disease with (acute) exacerbation Is this a current diagnosis for this admission?: Yes Plan: The patient has a history of COPD. I believe he is on nasal 02 at home 01/26 Will try the patient on CPAP today and I am hopeful he will wean. 01/28 The patient is doing well. No major resp. issues. (5) Cholelithiasis Is this a current diagnosis for this admission?: Yes Plan: The patient is s/p lap choley on 01/25. (6) Thrombocytopenia Is this a current diagnosis for this admission?: Yes Plan: Mikayla shpeherd to transfiuse platlets. His platelet count is chronically low but not dangerously so. - Time Time Spent with patient: 15-24 minutes Anticipated discharge: Home Within: within 36 hours
[2019-01-28] MEDS ORDERED: LEVOTHYROXINE SODIUM INJ/PF 0.1 MG SDV IV SCH (10:00)
[2019-01-28] MEDS: LEVOTHYROXINE SODIUM INJ/PF 0.1 MG SDV IV SCH (11:57)
[2019-01-28] MEDS: TAMSULOSIN HCL 0.4 MG CAP.SR.24H PO SCH (18:16)
[2019-01-28] MEDS: TRAZODONE HCL 50 MG TABLET NG SCH (21:03)
[2019-01-28] MEDS: MONTELUKAST SODIUM 10 MG TABLET NG SCH (21:03)
[2019-01-28] MEDS: ACETAMINOPHEN 325 MG TABLET NG PRN (23:07)
[2019-01-29] MEDS: PIPERACILLIN SODIUM/TAZOBACTAM 3.375 GM in NORMAL SALINE 100 ML IV SCH ×4 (03:07→20:38)
[2019-01-29] MEDS: HEPARIN SOD (PORCINE) 5,000 UNIT/ML 1 ML VIAL SUBCUT SCH ×3 (05:25→21:11)
[2019-01-29] MEDS: RINGERS SOLUTION,LACTATED 1,000 ML IV PRN (05:28)
[2019-01-29] MEDS: INSULIN LISPRO 100 UNIT/ML 3 ML VIAL SUBCUT SCH ×4 (05:30→21:12)
[2019-01-29] MEDS: IPRATROPIUM/ALBUTEROL 0.5-2.5 MG/3 ML AMPUL NEB SCH ×2 (08:16→20:15)
[2019-01-29 08:55] LABS: ABSOLUTE EOSINOPHILS # (AUTO) 0.1 10^3/uL (0.0-0.6); ABSOLUTE LYMPHOCYTES (AUTO) 0.7 10^3/uL (0.5-4.7); ABSOLUTE MONOCYTES (AUTO) 0.3 10^3/uL (0.1-1.4); ABSOLUTE NEUT (AUTO) 3.3 10^3/uL (1.7-8.2); BASOPHILS % (AUTO) 0.4 % (0-2); EOSINOPHILS % (AUTO) 2.3 % (0-6); HEMATOCRIT 34.1 % (37.9-51.0); HEMOGLOBIN 11.5 g/dL (13.5-17.0); LYMPHOCYTES % (AUTO) 16.3 % (13-45); MEAN CORPUSCULAR HEMOGLOBIN 30.5 pg (27.0-33.4); MEAN CORPUSCULAR HGB CONC 33.8 g/dL (32.0-36.0); MEAN CORPUSCULAR VOLUME 90 fl (80-97); MONOCYTES % (AUTO) 6.3 % (3-13); PLATELET COUNT 139 10^3/uL (150-450); RED BLOOD COUNT 3.79 10^6/uL (4.35-5.55); RED CELL DISTRIBUTION WIDTH 14.6 % (11.5-14.0); SEGMENTED NEUTROPHILS % (AUTO) 74.7 % (42-78); TOTAL CELLS COUNTED % (AUTO) 100 %; WHITE BLOOD COUNT 4.4 10^3/uL (4.0-10.5)
[2019-01-29] MEDS ORDERED: FUROSEMIDE INJ/PF 40 MG/4 ML SDV IV ONE (09:00)
--- NOTE | 2019-01-29 09:03 | PDOC PROGRESS REPORT ---
Subjective Progress Note for:: 01/29/19 Subjective:: Mr. Stanley is a 78 yo man who underwent a cholecystectomy on 01/25 for qangrenous gallbladder. He remains in the ICU. He continue to have a low grade fever. He is also hypertensive this am. He has no complaints and is ready to get out of the ICU. Reason For Visit: ACUTE SATISH,SEPSIS,AMS,ARF Physical Exam Vital Signs: Temp Pulse Resp BP Pulse Ox 100.2 F 72 22 H 165/72 H 96 01/29/19 08:00 01/29/19 08:35 01/29/19 08:35 01/29/19 07:58 01/29/19 08:35 Intake & Output 01/28/19 01/29/19 01/30/19 06:59 06:59 06:59 Intake Total 4773 3457 610 Output Total 2610 2745 60 Balance 2163 712 550 Weight 122.5 kg 125.8 kg General appearance: PRESENT: no acute distress, well-developed, well-nourished Head exam: PRESENT: atraumatic, normocephalic Respiratory exam: PRESENT: clear to auscultation cristal Cardiovascular exam: PRESENT: RRR Additional comments: Soft, non-tender, no rebound, no guarding, AZIZA in place GI/Abdominal exam: PRESENT: soft Additional comments: no edema Results Laboratory Results: 01/23/19 19:49 Blood Blood Culture - Final NO GROWTH IN 5 DAYS 01/23/19 18:10 Blood Blood Culture - Final NO GROWTH IN 5 DAYS Impressions: Head CT 01/23/19 22:24 IMPRESSION: No acute intracranial abnormality. Mild chronic microvascular ischemic change and generalized atrophy. TECHNICAL DOCUMENTATION: Quality ID # 436: Final reports with documentation of one or more dose reduction techniques (e.g., Automated exposure control, adjustment of the mA and/or kV according to patient size, use of iterative reconstruction technique) copyright 2011 [employer]- All Rights Reserved Hepatobiliary Scan Nuclear Medicine 01/24/19 00:00 IMPRESSION: Nonvisualization of the gallbladder. Patent common bile duct. Abdomen/Pelvis CT 01/24/19 00:58 IMPRESSION: Acute calculus cholecystitis. TECHNICAL DOCUMENTATION: Quality ID # 436: Final reports with documentation of one or more dose reduction techniques (e.g., Automated exposure control, adjustment of the mA and/or kV according to patient size, use of iterative reconstruction technique) copyright 2011 [employer]- All Rights Reserved Assessment & Plan - Diagnosis (1) Acute encephalopathy Is this a current diagnosis for this admission?: Yes (2) Acute kidney injury Is this a current diagnosis for this admission?: Yes (3) COPD (chronic obstructive pulmonary disease) Qualifiers: COPD type: COPD with acute exacerbation Qualified Code(s): J44.1 - Chronic obstructive pulmonary disease with (acute) exacerbation Is this a current diagnosis for this admission?: Yes (4) Calculus of gallbladder with cholecystitis Qualifiers: Cholecystitis acuity: acute Biliary obstruction: with biliary obstruction Qualified Code(s): K80.01 - Calculus of gallbladder with acute cholecystitis with obstruction Is this a current diagnosis for this admission?: Yes (5) Thrombocytopenia Is this a current diagnosis for this admission?: Yes - Plan Summary Plan Summary: Mr. Stanley is a 78 yo man s/p cholecystectomy for a cholecystitis and a gangrenous gall bladder. Plan: 1. Respiratory: stable on nasal cannula. Wean to RA as tolerated 2. Pulmonary: COPD, stable. prn breathing treatments. 3. CV: HTN. Will d/c IVF and give lasix 4. Surgery: s/p cholecystectomy for a gangreous gallbladder on 01/25. Still with AZIZA drain in place. Care per surgery 5. ID: continues to be febrile. Remains on zosyn, day 6. Will check blood cultures and CXR. 6. Renal: ELINA. Will check BMP 7. Heme: thrombocytopenia. CBC pending 8. Neuro: enceophalopathy has resolved 9. Nutrition: clear liquid diet 10. Prophylaxis: sq heparin 11. Activity: out of bed to chair. Ambulate 12. labs pending 13. Disposition: awaiting transfer out of the ICU
[2019-01-29 09:11] LABS: ANION GAP 6 (5-19); BLOOD UREA NITROGEN 14 mg/dL (7-20); CALCIUM 8.1 mg/dL (8.4-10.2); CARBON DIOXIDE 30 mmol/L (22-30); CHLORIDE 103 mmol/L (98-107); GLUCOSE 103 mg/dL (75-110); POTASSIUM 4.1 mmol/L (3.6-5.0)
--- NOTE | 2019-01-29 10:21 | RADIOLOGY REPORT (SQ) ---
EXAM DESCRIPTION: CHEST SINGLE VIEW COMPLETED DATE/TIME: 01/29/2019 9:53 am REASON FOR STUDY: fever. eval for PNA COMPARISON: 01/26/2019 EXAM PARAMETERS: NUMBER OF VIEWS: One view. TECHNIQUE: Single frontal radiographic view of the chest acquired. RADIATION DOSE: NA LIMITATIONS: None. FINDINGS: LUNGS AND PLEURA: Elevation of the right hemidiaphragm with mild bibasilar opacities, impr boubacar from prior. No large effusion. No pneumothorax. Unchanged elevation of the right hemidiaphrag m. MEDIASTINUM AND HILAR STRUCTURES: Stable. HEART AND VASCULAR STRUCTURES: Enlarged cardiac silhouette, stable. BONES: No acute findings. HARDWARE: Extubation with removal of the enteric tube. OTHER: No other significant finding. IMPRESSION: Low lung volumes with minimal improved bibasilar opacities, likely atelectasis. Status post extubation. TECHNICAL DOCUMENTATION: JOB ID: [id number] [employer]- All Rights Reserved Reading location - IP/workstation name: [email or web address]
[2019-01-29] MEDS: FAMOTIDINE INJ/PF 20 MG/2 ML SDV IV SCH ×2 (10:36→21:11)
[2019-01-29] MEDS: LEVOTHYROXINE SODIUM INJ/PF 0.1 MG SDV IV SCH (10:36)
[2019-01-29] MEDS: DOCUSATE SODIUM 100 MG CAPSULE PO SCH ×2 (10:37→17:22)
--- NOTE | 2019-01-29 11:41 | PDOC PROGRESS REPORT ---
Subjective Progress Note for:: 01/29/19 Subjective:: Feels well. Tolerating clears well. Hungry. Had bowel movements yesterday. Reason For Visit: ACUTE SATISH,SEPSIS,AMS,ARF Physical Exam Vital Signs: Temp Pulse Resp BP Pulse Ox 100.2 F 72 21 H 165/72 H 96 01/29/19 10:11 01/29/19 08:35 01/29/19 10:11 01/29/19 07:58 01/29/19 08:35 Intake & Output 01/28/19 01/29/19 01/30/19 06:59 06:59 06:59 Intake Total 4773 3457 610 Output Total 2610 2745 120 Balance 2163 712 490 Weight 122.5 kg 125.8 kg General appearance: PRESENT: no acute distress, cooperative Respiratory exam: PRESENT: clear to auscultation cristal Cardiovascular exam: PRESENT: RRR GI/Abdominal exam: PRESENT: other - Soft, protuberant, patient states that his abdomen girth is at baseline and he does not feel distended. Minimal tenderness. Drain output is serosanguineous now. Results Laboratory Results: 01/29/19 08:32 01/29/19 08:32 01/29/19 01/29/19 08:32 08:32 WBC 4.4 RBC 3.79 L Hgb 11.5 L Hct 34.1 L MCV 90 MCH 30.5 MCHC 33.8 RDW 14.6 H Plt Count 139 L Seg Neutrophils % 74.7 Sodium 138.6 Potassium 4.1 Chloride 103 Carbon Dioxide 30 Anion Gap 6 BUN 14 Creatinine 0.82 Est GFR ( Amer) > 60 Glucose 103 Calcium 8.1 L Magnesium 1.3 L 01/23/19 19:49 Blood Blood Culture - Final NO GROWTH IN 5 DAYS 01/23/19 18:10 Blood Blood Culture - Final NO GROWTH IN 5 DAYS Impressions: Head CT 01/23/19 22:24 IMPRESSION: No acute intracranial abnormality. Mild chronic microvascular ischemic change and generalized atrophy. TECHNICAL DOCUMENTATION: Quality ID # 436: Final reports with documentation of one or more dose reduction techniques (e.g., Automated exposure control, adjustment of the mA and/or kV according to patient size, use of iterative reconstruction technique) copyright 2011 [employer]- All Rights Reserved Hepatobiliary Scan Nuclear Medicine 01/24/19 00:00 IMPRESSION: Nonvisualization of the gallbladder. Patent common bile duct. Abdomen/Pelvis CT 01/24/19 00:58 IMPRESSION: Acute calculus cholecystitis. TECHNICAL DOCUMENTATION: Quality ID # 436: Final reports with documentation of one or more dose reduction techniques (e.g., Automated exposure control, adjustment of the mA and/or kV according to patient size, use of iterative reconstruction technique) copyright 2011 [employer]- All Rights Reserved Chest X-Ray 01/29/19 00:00 IMPRESSION: Low lung volumes with minimal improved bibasilar opacities, likely atelectasis. Status post extubation. Assessment & Plan - Diagnosis (1) Calculus of gallbladder with cholecystitis Qualifiers: Cholecystitis acuity: acute Biliary obstruction: with biliary obstruction Qualified Code(s): K80.01 - Calculus of gallbladder with acute cholecystitis with obstruction Is this a current diagnosis for this admission?: Yes Plan: Status post laparoscopic cholecystectomy. Patient looks much better. Pending transfer to the floor. Will advance his diet. If patient continues to do well likely will be at the discharge patient home in the next day or so.
[2019-01-29] MEDS: CLONAZEPAM 1 MG TABLET PO SCH ×2 (12:31→17:22)
[2019-01-29] MEDS: TAMSULOSIN HCL 0.4 MG CAP.SR.24H PO SCH (17:22)
[2019-01-29] MEDS: ACETAMINOPHEN 325 MG TABLET NG PRN (17:22)
[2019-01-29] MEDS: MAGNESIUM SULFATE/D5W 1 GM/100 ML RTUPB IV SCH ×2 (17:23→18:26)
[2019-01-29] MEDS: MONTELUKAST SODIUM 10 MG TABLET NG SCH (21:12)
[2019-01-29] MEDS: TRAZODONE HCL 50 MG TABLET NG SCH (21:12)
[2019-01-29] MEDS ORDERED: CHLORPROMAZINE HCL INJ 25 MG/1 ML AMPULE IV PRN (21:36)
[2019-01-29 23:04] LABS: ANION GAP 9 (5-19); BLOOD UREA NITROGEN 14 mg/dL (7-20); CALCIUM 7.9 mg/dL (8.4-10.2); CARBON DIOXIDE 30 mmol/L (22-30); CHLORIDE 97 mmol/L (98-107); GLUCOSE 108 mg/dL (75-110); PHOSPHORUS 3.4 mg/dL (2.5-4.5); POTASSIUM 3.2 mmol/L (3.6-5.0)
[2019-01-29] MEDS ORDERED: POTASSI CL 20 MEQ/50 ML RIDER 20 MEQ/50 ML RTUPB IV ONE (23:32)
[2019-01-29] MEDS ORDERED: MAGNESIUM SULFATE/D5W 1 GM/100 ML RTUPB IV ONE (23:32)
[2019-01-30] MEDS: POTASSIUM CHLORIDE 20 MEQ/50 ML RTU IV SCH ×2 (00:19→00:56)
[2019-01-30] MEDS: MAGNESIUM SULFATE 1 GM/D5W 100 ML IV SCH ×2 (00:19→00:50)
[2019-01-30] MEDS ORDERED: CHLORPROMAZINE HCL INJ 25 MG/1 ML AMPULE IV PRN (01:14)
[2019-01-30] MEDS: PIPERACILLIN SODIUM/TAZOBACTAM 3.375 GM in NORMAL SALINE 100 ML IV SCH ×4 (02:50→21:14)
[2019-01-30] MEDS: METOPROLOL TARTRATE PF/INJ 5 MG/5 ML SDV IV ONE ×2 (02:51→02:55)
[2019-01-30] MEDS: METOPROLOL TARTRATE PF/INJ 5 MG/5 ML SDV IV SCH ×3 (02:51→03:01)
[2019-01-30] MEDS ORDERED: METOPROLOL TARTRATE 25 MG TABLET PO ONE (04:15)
[2019-01-30 05:41] LABS: ABSOLUTE EOSINOPHILS # (AUTO) 0.1 10^3/uL (0.0-0.6); ABSOLUTE MONOCYTES (AUTO) 0.4 10^3/uL (0.1-1.4); ABSOLUTE NEUT (AUTO) 3.4 10^3/uL (1.7-8.2); BASOPHILS % (AUTO) 0.4 % (0-2); EOSINOPHILS % (AUTO) 2.9 % (0-6); HEMATOCRIT 35.6 % (37.9-51.0); LYMPHOCYTES % (AUTO) 20.1 % (13-45); MEAN CORPUSCULAR HEMOGLOBIN 29.9 pg (27.0-33.4); MEAN CORPUSCULAR HGB CONC 33.6 g/dL (32.0-36.0); MEAN CORPUSCULAR VOLUME 89 fl (80-97); MONOCYTES % (AUTO) 8.3 % (3-13); PLATELET COUNT 130 10^3/uL (150-450); RED CELL DISTRIBUTION WIDTH 14.6 % (11.5-14.0); SEGMENTED NEUTROPHILS % (AUTO) 68.3 % (42-78); TOTAL CELLS COUNTED % (AUTO) 100 %
[2019-01-30] MEDS: HEPARIN SOD (PORCINE) 5,000 UNIT/ML 1 ML VIAL SUBCUT SCH ×3 (05:55→21:15)
[2019-01-30 06:00] LABS: ANION GAP 6 (5-19); BLOOD UREA NITROGEN 13 mg/dL (7-20); CARBON DIOXIDE 31 mmol/L (22-30); CHLORIDE 102 mmol/L (98-107); GLUCOSE 128 mg/dL (75-110); POTASSIUM 3.7 mmol/L (3.6-5.0)
[2019-01-30] MEDS: IPRATROPIUM/ALBUTEROL 0.5-2.5 MG/3 ML AMPUL NEB SCH ×2 (08:11→20:48)
[2019-01-30] MEDS: METOPROLOL SUCCINATE 50 MG TAB.SR.24H PO SCH (08:13)
[2019-01-30] MEDS ORDERED: HALOPERIDOL LACTATE INJ 5 MG/1 ML VIAL IV PRN (08:17)
[2019-01-30] MEDS: INSULIN LISPRO 100 UNIT/ML 3 ML VIAL SUBCUT SCH ×4 (08:23→21:19)
--- NOTE | 2019-01-30 09:31 | PDOC PROGRESS REPORT ---
Subjective Progress Note for:: 01/30/19 Subjective:: ICU progress note. Pt was agitated overnight and received thorazine. He also became hypoxic overnight and was started on bipap. Reason For Visit: ACUTE SATISH,SEPSIS,AMS,ARF Physical Exam Vital Signs: Temp Pulse Resp BP Pulse Ox 99.9 F 80 23 H 123/74 79 L 01/30/19 07:00 01/30/19 08:00 01/30/19 08:00 01/30/19 08:00 01/30/19 07:00 Intake & Output 01/29/19 01/30/19 01/31/19 06:59 06:59 06:59 Intake Total 3457 1850 Output Total 2745 1820 Balance 712 30 Weight 125.8 kg 120.6 kg General appearance: PRESENT: no acute distress, well-developed, well-nourished Head exam: PRESENT: atraumatic, normocephalic Respiratory exam: PRESENT: clear to auscultation cristal, unlabored Cardiovascular exam: PRESENT: RRR GI/Abdominal exam: PRESENT: soft Additonal comments: soft, NTND,no rebound, no guarding Additional comments: drowsy, but arousable Additonal comments: ext: no edema Results Laboratory Results: 01/30/19 05:21 01/30/19 05:21 01/29/19 01/30/19 01/30/19 22:30 05:21 05:21 WBC 5.0 RBC 4.00 L Hgb 12.0 L Hct 35.6 L MCV 89 MCH 29.9 MCHC 33.6 RDW 14.6 H Plt Count 130 L Seg Neutrophils % 68.3 Sodium 136.3 L 138.8 Potassium 3.2 L 3.7 Chloride 97 L 102 Carbon Dioxide 30 31 H Anion Gap 9 6 BUN 14 13 Creatinine 0.98 0.90 Est GFR ( Amer) > 60 > 60 Glucose 108 128 H Calcium 7.9 L 8.0 L Phosphorus 3.4 Magnesium 1.3 L 1.6 Impressions: Head CT 01/23/19 22:24 IMPRESSION: No acute intracranial abnormality. Mild chronic microvascular ischemic change and generalized atrophy. TECHNICAL DOCUMENTATION: Quality ID # 436: Final reports with documentation of one or more dose reduction techniques (e.g., Automated exposure control, adjustment of the mA and/or kV according to patient size, use of iterative reconstruction technique) copyright 2010 [employer]- All Rights Reserved Hepatobiliary Scan Nuclear Medicine 01/24/19 00:00 IMPRESSION: Nonvisualization of the gallbladder. Patent common bile duct. Abdomen/Pelvis CT 01/24/19 00:58 IMPRESSION: Acute calculus cholecystitis. TECHNICAL DOCUMENTATION: Quality ID # 436: Final reports with documentation of one or more dose reduction techniques (e.g., Automated exposure control, adjustment of the mA and/or kV according to patient size, use of iterative reconstruction technique) copyright 2010 [employer]- All Rights Reserved Assessment & Plan - Diagnosis (1) Acute encephalopathy Is this a current diagnosis for this admission?: Yes (2) Acute kidney injury Is this a current diagnosis for this admission?: Yes (3) COPD (chronic obstructive pulmonary disease) Qualifiers: COPD type: COPD with acute exacerbation Qualified Code(s): J44.1 - Chronic obstructive pulmonary disease with (acute) exacerbation Is this a current diagnosis for this admission?: Yes (4) Calculus of gallbladder with cholecystitis Qualifiers: Cholecystitis acuity: acute Biliary obstruction: with biliary obstruction Qualified Code(s): K80.01 - Calculus of gallbladder with acute cholecystitis with obstruction Is this a current diagnosis for this admission?: Yes (5) Thrombocytopenia Is this a current diagnosis for this admission?: Yes - Plan Summary Plan Summary: Mr. Stanley is a 78 yo man s/p cholecystectomy for a cholecystitis and a piper grenous gall bladder, ICU delirum, acute hypoxic respiratory failure, HTN, possible PNA. Plan: 1. Respiratory: acute hypoxic resp failure. Pt hypoxic overnight, started on bipap. Now on NC. Will check ABG 2. Pulmonary: acute hypoxic resp failure, possible PNA. Will order CTA of chest to r/o PE. COPD, continue breathing treatments 3. CV: HTN, resolving. BP improved, s/p lasix yesterday 4. Surgery: s/p cholecystectomy for a gangreous gallbladder on 01/25. Care per surgery 5. ID: Possible PNA> afebrile today. Remains on zosyn, day 7. Cultures pending. WIll order CT of chest. 6. Renal: ELINA,resolved 7. Heme: thrombocytopenia,resolved 8. Neuro/Psych: enceophalopathy due to ICU delirum. WIll resume home seroquel. Continue home trazodone. Will d/c prn thorazine and start prn haldol 9. Nutrition: regular diet 10. Prophylaxis: sq heparin. Will order LE doppler 11. Continue to monitor in the ICU. Critical care time= 50 min, excluding procedures
--- NOTE | 2019-01-30 09:51 | RADIOLOGY REPORT (SQ) ---
EXAM DESCRIPTION: CHEST SINGLE VIEW COMPLETED DATE/TIME: 01/30/2019 8:11 am REASON FOR STUDY: requiring bipap r/t hypoxia COMPARISON: 01/29/2019 NUMBER OF VIEWS: One view. TECHNIQUE: Single frontal radiographic view of the chest acquired. LIMITATIONS: None. FINDINGS: LUNGS AND PLEURA: Slight increase in right basilar airspace disease most likely atelectasi s. Findings are otherwise unchanged. MEDIASTINUM AND HILAR STRUCTURES: No masses. Contour normal. HEART AND VASCULAR STRUCTURES: Stable in appearance. BONES: No acute findings. HARDWARE: None in the chest. OTHER: No other significant finding. IMPRESSION: Slight increase in right lower lobe airspace disease most likely atelectasis. TECHNICAL DOCUMENTATION: JOB ID: [id number] [employer]- All Rights Reserved Reading location - IP/workstation name: [email or web address]
[2019-01-30 10:10] LABS: ARTERIAL BLOOD BASE EXCESS 4.5 mmol/L; ARTERIAL BLOOD H2CO3 1.31 mmol/L (1.05-1.35); ARTERIAL BLOOD HCO3 29.1 mmol/L (20-24); ARTERIAL BLOOD O2 SATURATION 93.2 % (94-98); ARTERIAL BLOOD PCO2 43.5 mmHg (35-45); ARTERIAL BLOOD PH 7.44 (7.35-7.45); ARTERIAL BLOOD PO2 64.1 mmHg (80-100); ARTERIAL BLOOD TOTAL CO2 30.5 mmol/L (23-27)
[2019-01-30 10:11] LABS: ARTERIAL BLOOD FIO2 5L
[2019-01-30] MEDS: QUETIAPINE FUMARATE 25 MG TABLET PO SCH ×3 (11:27→17:52)
[2019-01-30] MEDS: DOCUSATE SODIUM 100 MG CAPSULE PO SCH ×2 (11:27→17:52)
[2019-01-30] MEDS: CLONAZEPAM 1 MG TABLET PO SCH ×2 (11:27→17:52)
[2019-01-30] MEDS: FAMOTIDINE INJ/PF 20 MG/2 ML SDV IV SCH ×2 (11:27→21:15)
[2019-01-30] MEDS: LEVOTHYROXINE SODIUM INJ/PF 0.1 MG SDV IV SCH (11:27)
--- NOTE | 2019-01-30 11:28 | Physical Med & Rehab Consult ---
Consultation Consult Date: 01/30/19 Provider Consulted: TILA ZEPEDA Consult reason:: Evaluation for admission to acute inpatient rehabilitation History of Present Illness Admission Date/PCP: 01/24/19 02:52 CORAL GUSMAN PA-C Patient complains of: Shortness of breath History of Present Illness: HILARIO STANLEY is a 78-year-old male with the below mentioned past medical history admitted to [facility] on 01/24/2019 after presenting with 1 week of shortness of breath, generalized weakness, and slurred speech without focal weakness and being found to have acute renal failure and acute cholecystitis. The patient was evaluated by general surgery and underwent laparoscopic cholecystectomy on 01/25/2019 with intraoperative findings including liver consistent with chronic cirrhosis and an acute pregangrenous cholecystitis with a very large gallstone. Postoperative course has included acute blood loss anemia, thrombus cytopenia, acute encephalopathy, acute hypoxic respiratory failure, and possible pneumonia. He also had agitation requiring chemical sedation. Physical medicine and rehabilitation consultation was requested to evaluate the patient for admission to acute inpatient rehabilitation. Today, the patient was seen and examined in his room with his son, niece, and occupational therapist at bedside. The patient states that he feels okay and offers no complaints. He does admit to shortness of breath when specifically asked about it. He states "I will make it." His last bowel movement was yesterday, and he denies trouble with urination. He seems to be unsure about his own medical history and states that he "takes what the doctor tells him to." Past Medical History Cardiac Medical History: Reports: Hypertension Denies: Myocardial Infarction Pulmonary Medical History: Reports: Asthma, Chronic Obstructive Pulmonary Disease (COPD) Denies: Tuberculosis Neurological Medical History: Denies: Seizures Endocrine Medical History: Reports: Diabetes Mellitus Type 2 GI Medical History: Reports: Gastroesophageal Reflux Disease Denies: Hepatitis, Hiatal Hernia Musculoskeltal Medical History: Reports: Arthritis - Rheumatoid arthritis Hematology: Denies: Anemia, Sickle Cell Disease Past Surgical History Past Surgical History: Denies: Pacemaker Social History Lives with: Family Smoking Status: Never Smoker Frequency of Alcohol Use: Rare Hx Recreational Drug Use: No Drugs: None Hx Prescription Drug Abuse: No Past Social History Note: Hilario Stanley lives alone in a 1 level home with 1 step to enter and 0 steps to the bedroom and bathroom. He does not smoke but he does drink to the point of inebriation 1-2 times per month. His son lives about 15 minutes away, and he also has a daughter who lives in the area. However, they are unable to provide 24-hour supervision post hospital discharge. Prior Functional Status: He is mostly homebound and ambulates only to bathroom from his bed. His son reports that lately he has not been doing that either. He ambulates with a cane and occasionally with a walker. Requires assistance for ADLs. Current Functional Status: Per therapy notes, the patient currently requires minimum assistance for bed mobility, minimum assistance for transfers, and minimum assistance for ambulation of 15 feet with a rolling walker. Per discussion with occupational therapist, the patient requires moderate to maximum assistance for activities of daily living. - Advance Directive Resuscitation Status: Do Not Resuscitate Family History Family History: COPD Parental Family History Reviewed: Yes Children Family History Reviewed: Yes Sibling(s) Family History Reviewed.: NA Medication/Allergy Home Medications: Albuterol Sulfate [Ventolin Hfa] 2 units PO PRN PRN 04/20/13 Furosemide [Lasix] 20 mg PO DAILY 04/20/13 Glimepiride [Amaryl 4 mg Tablet] 4 mg PO DAILY 04/20/13 Levothyroxine Sodium [Unithroid] 50 mcg PO DAILY 04/20/13 Metformin HCl [Glucophage 500 mg Tablet] 500 mg PO BID 04/20/13 Montelukast Sodium 10 mg PO DAILY 04/20/13 Diclofenac Sodium 75 mg PO BID 01/24/19 Gabapentin [Neurontin 300 mg Capsule] 300 mg PO TID 01/24/19 Levothyroxine Sodium [Synthroid] 200 mcg PO DAILY 01/24/19 Losartan Potassium [Cozaar 100 mg Tablet] 100 mg PO DAILY 01/24/19 Omeprazole 20 mg PO DAILY 01/24/19 Oxycodone HCl [Oxycodone HCl 10 MG Tablet] 10 mg PO Q4HP PRN 01/24/19 Quetiapine Fumarate [Seroquel] 25 mg PO TID 01/24/19 Tamsulosin HCl [Flomax] 0.4 mg PO DAILY 01/24/19 Trazodone HCl 50 mg PO QPM 01/24/19 Allergies/Adverse Reactions: No Known Allergies Allergy (Verified 01/23/19 18:20) Review of Systems Review of Systems: Constitutional: No fevers, chills, sweats, weight loss Eye: No recent visual problems, no blurry vision, no double vision ENMT: No ear pain, nasal congestion, sore throat Respiratory: Positive for shortness of breath. Cardiovascular: No chest pain, palpitations, syncope Gastrointestinal: No nausea, vomiting, diarrhea, abdominal pain Genitourinary: No hematuria, dysuria, flank or suprapubic pain Onel/Lymph: Negative for bruising tendency, swollen lymph glands Endocrine: Negative for excessive thirst, excessive hunger, extreme fatigue Musculoskeletal: No back pain, neck pain, joint pain, muscle pain, decreased range of motion Integumentary: No rash, pruritus, abrasions Neurologic: No headaches, focal weakness, numbness, speech problems. Psychiatric: No anxiety, depression Physical Exam Vital Signs: Temp Pulse Resp BP Pulse Ox 99.9 F 96 22 H 123/74 92 01/30/19 07:00 01/30/19 08:11 01/30/19 08:11 01/30/19 08:00 01/30/19 08:11 Intake & Output 01/29/19 01/30/19 01/31/19 06:59 06:59 06:59 Intake Total 3457 1850 Output Total 2745 1820 Balance 712 30 Weight 125.8 kg 120.6 kg Exam: General: Awake but keeps his eyes mostly closed during the interview. No acute distress. Resting comfortably in bed with his family and occupational therapist at bedside. Head: Normocephalic. Atraumatic. Eyes: Pupils equal, round, and minimally reactive to light. EOMI. Sclera white. Ears: No drainage noted. Nose: Nares normal & without exudate. Nasal cannula oxygen in place. Oropharynx: Moist mucous membranes. Neck: Supple movements. Cardiovascular: Regular rate & rhythm. No murmurs, rubs, or gallops appreciated. Pulmonary: Lungs clear to auscultation bilaterally. No increased work of breathing. Gastrointestinal: Abdomen soft, non-tender, protuberant. Normoactive bowel sounds. Skin: Texture and turgor normal. Warm and dry. Multiple small surgical incisions on the abdomen are well approximated with dressings in place. Psychiatric: He is oriented to self only. He states that he is in the post office in [place] instead of the hospital in [place]. He does not know the date or who the president is. Extremities: Arthritic changes noted. Neurological: CN III-XII grossly intact. Sensation to light touch is grossly intact. Tone is normal. Speech is fluent with good content and without dysarthria. Muscle Strength: Full 5/5 strength in all major muscle groups of the 4 extremities. Results Laboratory Results: 01/30/19 05:21 01/30/19 05:21 01/29/19 01/30/19 01/30/19 22:30 05:21 05:21 WBC 5.0 RBC 4.00 L Hgb 12.0 L Hct 35.6 L MCV 89 MCH 29.9 MCHC 33.6 RDW 14.6 H Plt Count 130 L Seg Neutrophils % 68.3 Carbonic Acid HCO3/H2CO3 Ratio ABG pH ABG pCO2 ABG pO2 ABG HCO3 ABG O2 Saturation ABG Base Excess FiO2 Sodium 136.3 L 138.8 Potassium 3.2 L 3.7 Chloride 97 L 102 Carbon Dioxide 30 31 H Anion Gap 9 6 BUN 14 13 Creatinine 0.98 0.90 Est GFR ( Amer) > 60 > 60 Glucose 108 128 H Calcium 7.9 L 8.0 L Phosphorus 3.4 Magnesium 1.3 L 1.6 01/30/19 10:00 WBC RBC Hgb Hct MCV MCH MCHC RDW Plt Count Seg Neutrophils % Carbonic Acid 1.31 HCO3/H2CO3 Ratio 22:1 ABG pH 7.44 ABG pCO2 43.5 ABG pO2 64.1 L ABG HCO3 29.1 H ABG O2 Saturation 93.2 L ABG Base Excess 4.5 FiO2 5L Sodium Potassium Chloride Carbon Dioxide Anion Gap BUN Creatinine Est GFR ( Amer) Glucose Calcium Phosphorus Magnesium Impressions: Head CT 01/23/19 22:24 IMPRESSION: No acute intracranial abnormality. Mild chronic microvascular ischemic change and generalized atrophy. TECHNICAL DOCUMENTATION: Quality ID # 436: Final reports with documentation of one or more dose reduction techniques (e.g., Automated exposure control, adjustment of the mA and/or kV according to patient size, use of iterative reconstruction technique) copyright 2011 [employer]- All Rights Reserved Hepatobiliary Scan Nuclear Medicine 01/24/19 00:00 IMPRESSION: Nonvisualization of the gallbladder. Patent common bile duct. Abdomen/Pelvis CT 01/24/19 00:58 IMPRESSION: Acute calculus cholecystitis. TECHNICAL DOCUMENTATION: Quality ID # 436: Final reports with documentation of one or more dose reduction techniques (e.g., Automated exposure control, adjustment of the mA and/or kV according to patient size, use of iterative reconstruction technique) copyright 2011 [employer]- All Rights Reserved Chest X-Ray 01/30/19 00:00 IMPRESSION: Slight increase in right lower lobe airspace disease most likely atelectasis. Assessment and Plan - Plan Summary Plan Summary: 78-year-old male with debility secondary to hospitalization for acute cholecystitis and acute renal failure. 1. Gait and ADL Dysfunction secondary to hospitalization for acute cholecystitis and acute renal failure. - Continue PT and OT to maximize mobility, safety, endurance, and self-care. 2. Acute cholecystitis - Status post cholecystectomy on 01/25/2019 - Continue management per general surgery 3. Acute renal failure - Resolved with IV fluid hydration 4. Acute respiratory failure - Continue work-up and management per child nutrition manager 5. Disposition - Based on the patient's diagnosis, medical co-morbidities, and current functional status, he is not a candidate for Acute Inpatient Rehabilitation as he would be unable to tolerate 3 hours/day of intensive therapies and at least 2 disciplines with a reasonable expectation of making significant functional gains in a relatively short period of time. The patient would benefit from a prolonged, less intensive rehabilitation course that can be provided at the subacute level. This was discussed with the patient and his son, who are agreeable. This was also discussed with the child nutrition manager and service planner on the floor, who will work on discharge planning as the patient's medical issues resolved. Thank you for allowing us to participate in the care of this patient. Please call with any questions. A total of 55 minutes was spent on [id number] communication with the patient and coordination of care.
--- NOTE | 2019-01-30 12:43 | RADIOLOGY REPORT (SQ) ---
EXAM DESCRIPTION: VENOUS BILATERAL LOWER COMPLETED DATE/TIME: 01/30/2019 12:20 pm REASON FOR STUDY: LE edema COMPARISON: None. TECHNIQUE: Dynamic and static degroot scale and color images acquired of both lower extremity venous sy stems. Selected spectral images acquired with additional compression and augmentation maneuvers. Imag es stored on PACS. LIMITATIONS: None. FINDINGS: RIGHT LEG COMMON FEMORAL AND FEMORAL: Normal phasicity, compression and augmentation. No visualized echogenic m aterial on degroot scale. No defects on color images. POPLITEAL: Normal compression and augmentation. No visualized echogenic material on degroot scale. No de fects on color images. CALF VESSELS: Normal compression and augmentation. No visualized echogenic material on degroot scale. No defects on color image. GSV AND SSV: Normal compression. No visualized echogenic material on degroot scale. No defects on color images. ANY DEEP VENOUS INSUFFICIENCY: Not evaluated. ANY EVIDENCE OF POPLITEAL CYST: No. OTHER: No other significant finding. LEFT LEG COMMON FEMORAL AND FEMORAL: Normal phasicity, compression and augmentation. No visualized echogenic m aterial on degroot scale. No defects on color images. POPLITEAL: Normal compression and augmentation. No visualized echogenic material on degroot scale. No de fects on color images. CALF VESSELS: Normal compression and augmentation. No visualized echogenic material on degroot scale. No defects on color images. GSV AND SSV: Normal compression. No visualized echogenic material on degroot scale. No defects on color images. ANY DEEP VENOUS INSUFFICIENCY: Not evaluated. ANY EVIDENCE POPLITEAL CYST: No. OTHER: No other significant finding. IMPRESSION: NO EVIDENCE DVT OR SVT IN EITHER LEG. TECHNICAL DOCUMENTATION: JOB ID: [id number] [employer]- All Rights Reserved Reading location - IP/workstation name: [email or web address]
--- NOTE | 2019-01-30 13:01 | RADIOLOGY REPORT (SQ) ---
EXAM DESCRIPTION: CTA CHEST COMPLETED DATE/TIME: 01/30/2019 12:23 pm REASON FOR STUDY: hypoxia, eval for PE, possible PNA COMPARISON: 01/20/2019 TECHNIQUE: CT scan of the chest performed using helical scanning technique with dynamic intravenous contrast injection. Images reviewed with lung, soft tissue and bone windows. Reconstructed coronal and sagittal MPR images reviewed. Additional 3 dimensional post-processing performed to develop Maximal Intensity Projection images (NE P). All images stored on PACS. All CT scanners at this facility use dose modulation, iterative reconstruction, and/or weight based d osing when appropriate to reduce radiation dose to as low as reasonably achievable (ALARA). [facility]: Dose Right [facility]: CareDose [facility]: Dose Right [facility]: Teradose 4D [facility]: Pinch Media CONTRAST TYPE AND DOSE: contrast/concentration: Isovue 350.00 mg/ml; Total Contrast Delivered: 53.0 ml; Total Saline Delivered: 55.0 ml Contrast bolus adequate for pulmonary arteries and aorta. RENAL FUNCTION: Creatinine 0.9 RADIATION DOSE: CT Rad equipment meets quality standard of care and radiation dose reduction techniq ues were employed. CTDIvol: 3.8 - 30.0 mGy. DLP: 688 mGy-cm. . LIMITATIONS: None. FINDINGS: LUNGS AND PLEURA: No masses, infiltrates, or pneumothorax. No pleural effusions or pleura l calcifications. AORTA AND GREAT VESSELS: Small bilateral pleural effusions, right greater than left with associated b ilateral lower lobe atelectasis, right greater than left as well. No pneumothorax. No discrete pulm onary masses. Mild upper lobe centrilobular emphysema. HEART: Enlarged heart. No significant pericardial effusion. Abnormal right to left ventricular rati o with flattening of the interventricular septum. Scattered coronary atherosclerosis. PULMONARY ARTERIES: Enlarged main bilateral pulmonary artery is HILAR AND MEDIASTINAL STRUCTURES: No identified masses or abnormal nodes. HARDWARE: None in the chest. UPPER ABDOMEN: Prior cholecystectomy. No acute findings. THYROID AND OTHER SOFT TISSUES: No masses. No adenopathy. BONES: No acute or significant finding. 3D MIPS: Confirm above findings. OTHER: No other significant finding. IMPRESSION: 1. No evidence of pulmonary embolus. 2. Enlarged pulmonary arteries and abnormal right to left ventricular ratio suggestive of pulmonary arterial hypertension. 3. Small bilateral pleural effusions and bibasilar atelectasis, left greater than right. COMMENT: Quality ID # 436: Final reports with documentation of one or more dose reduction techniques (e.g., Automated exposure control, adjustment of the mA and/or kV according to patient size, use of iterative reconstruction technique) TECHNICAL DOCUMENTATION: JOB ID: [id number] [employer]- All Rights Reserved Reading location - IP/workstation name: [email or web address]
--- NOTE | 2019-01-30 14:13 | PDOC PROGRESS REPORT ---
Subjective Progress Note for:: 01/30/19 Subjective:: Very mild pains around umbilical incision site Reason For Visit: ACUTE SATISH,SEPSIS,AMS,ARF Physical Exam Vital Signs: Temp Pulse Resp BP Pulse Ox 99.9 F 95 22 H 123/74 97 01/30/19 07:00 01/30/19 10:00 01/30/19 13:00 01/30/19 08:00 01/30/19 13:00 Intake & Output 01/29/19 01/30/19 01/31/19 06:59 06:59 06:59 Intake Total 3457 1850 100 Output Total 2745 1820 Balance 712 30 100 Weight 125.8 kg 120.6 kg Exam: All incisions look clean and dry. AZIZA drain decreased drainage Results Laboratory Results: 01/30/19 05:21 01/30/19 05:21 01/29/19 01/30/19 01/30/19 22:30 05:21 05:21 WBC 5.0 RBC 4.00 L Hgb 12.0 L Hct 35.6 L MCV 89 MCH 29.9 MCHC 33.6 RDW 14.6 H Plt Count 130 L Seg Neutrophils % 68.3 Carbonic Acid HCO3/H2CO3 Ratio ABG pH ABG pCO2 ABG pO2 ABG HCO3 ABG O2 Saturation ABG Base Excess FiO2 Sodium 136.3 L 138.8 Potassium 3.2 L 3.7 Chloride 97 L 102 Carbon Dioxide 30 31 H Anion Gap 9 6 BUN 14 13 Creatinine 0.98 0.90 Est GFR ( Amer) > 60 > 60 Glucose 108 128 H Calcium 7.9 L 8.0 L Phosphorus 3.4 Magnesium 1.3 L 1.6 01/30/19 10:00 WBC RBC Hgb Hct MCV MCH MCHC RDW Plt Count Seg Neutrophils % Carbonic Acid 1.31 HCO3/H2CO3 Ratio 22:1 ABG pH 7.44 ABG pCO2 43.5 ABG pO2 64.1 L ABG HCO3 29.1 H ABG O2 Saturation 93.2 L ABG Base Excess 4.5 FiO2 5L Sodium Potassium Chloride Carbon Dioxide Anion Gap BUN Creatinine Est GFR ( Amer) Glucose Calcium Phosphorus Magnesium Impressions: Head CT 01/23/19 22:24 IMPRESSION: No acute intracranial abnormality. Mild chronic microvascular ischemic change and generalized atrophy. TECHNICAL DOCUMENTATION: Quality ID # 436: Final reports with documentation of one or more dose reduction techniques (e.g., Automated exposure control, adjustment of the mA and/or kV according to patient size, use of iterative reconstruction technique) copyright 2010 [employer]- All Rights Reserved Hepatobiliary Scan Nuclear Medicine 01/24/19 00:00 IMPRESSION: Nonvisualization of the gallbladder. Patent common bile duct. Abdomen/Pelvis CT 01/24/19 00:58 IMPRESSION: Acute calculus cholecystitis. TECHNICAL DOCUMENTATION: Quality ID # 436: Final reports with documentation of one or more dose reduction techniques (e.g., Automated exposure control, adjustment of the mA and/or kV according to patient size, use of iterative reconstruction technique) copyright 2010 [employer]- All Rights Reserved Chest X-Ray 01/30/19 00:00 IMPRESSION: Slight increase in right lower lobe airspace disease most likely atelectasis. Chest/Abdomen CTA 01/30/19 00:00 IMPRESSION: 1. No evidence of pulmonary embolus. 2. Enlarged pulmonary arteries and abnormal right to left ventricular ratio suggestive of pulmonary arterial hypertension. 3. Small bilateral pleural effusions and bibasilar atelectasis, left greater than right. Venous Doppler Study 01/30/19 00:00 IMPRESSION: NO EVIDENCE DVT OR SVT IN EITHER LEG. Assessment & Plan - Diagnosis (1) Cholelithiasis Is this a current diagnosis for this admission?: Yes (2) Acute kidney injury Is this a current diagnosis for this admission?: Yes (3) COPD (chronic obstructive pulmonary disease) Qualifiers: COPD type: COPD with acute exacerbation Qualified Code(s): J44.1 - Chronic obstructive pulmonary disease with (acute) exacerbation Is this a current diagnosis for this admission?: Yes - Time Time Spent with patient: 15-24 minutes - Plan Summary Plan Summary: AZIZA drain removed. Continue increase po intake Will sign off. Arrange follow up surgical clinic in 2 weeks
[2019-01-30] MEDS: TAMSULOSIN HCL 0.4 MG CAP.SR.24H PO SCH (17:52)
[2019-01-30] MEDS: MONTELUKAST SODIUM 10 MG TABLET NG SCH (21:15)
[2019-01-30] MEDS: TRAZODONE HCL 50 MG TABLET NG SCH (21:15)
[2019-01-31] MEDS: PIPERACILLIN SODIUM/TAZOBACTAM 3.375 GM in NORMAL SALINE 100 ML IV SCH (03:28)
[2019-01-31 04:44] LABS: ABSOLUTE EOSINOPHILS # (AUTO) 0.2 10^3/uL (0.0-0.6); ABSOLUTE MONOCYTES (AUTO) 0.4 10^3/uL (0.1-1.4); ABSOLUTE NEUT (AUTO) 3.1 10^3/uL (1.7-8.2); BASOPHILS % (AUTO) 0.7 % (0-2); EOSINOPHILS % (AUTO) 3.5 % (0-6); HEMATOCRIT 35.5 % (37.9-51.0); HEMOGLOBIN 11.7 g/dL (13.5-17.0); LYMPHOCYTES % (AUTO) 20.7 % (13-45); MEAN CORPUSCULAR HEMOGLOBIN 29.8 pg (27.0-33.4); MEAN CORPUSCULAR HGB CONC 33.1 g/dL (32.0-36.0); MEAN CORPUSCULAR VOLUME 90 fl (80-97); MONOCYTES % (AUTO) 8.7 % (3-13); PLATELET COUNT 124 10^3/uL (150-450); RED BLOOD COUNT 3.94 10^6/uL (4.35-5.55); RED CELL DISTRIBUTION WIDTH 14.2 % (11.5-14.0); SEGMENTED NEUTROPHILS % (AUTO) 66.4 % (42-78); TOTAL CELLS COUNTED % (AUTO) 100 %; WHITE BLOOD COUNT 4.7 10^3/uL (4.0-10.5)
[2019-01-31 05:13] LABS: ANION GAP 8 (5-19); BLOOD UREA NITROGEN 12 mg/dL (7-20); CALCIUM 7.7 mg/dL (8.4-10.2); CARBON DIOXIDE 31 mmol/L (22-30); CHLORIDE 102 mmol/L (98-107); GLUCOSE 94 mg/dL (75-110); POTASSIUM 3.6 mmol/L (3.6-5.0)
[2019-01-31] MEDS: HEPARIN SOD (PORCINE) 5,000 UNIT/ML 1 ML VIAL SUBCUT SCH ×2 (06:03→13:54)
[2019-01-31] MEDS ORDERED: MAGNESIUM OXIDE 400 MG TABLET PO ONE (07:46)
[2019-01-31] MEDS: IPRATROPIUM/ALBUTEROL 0.5-2.5 MG/3 ML AMPUL NEB SCH (08:28)
[2019-01-31] MEDS ORDERED: LEVOTHYROXINE SODIUM 0.05 MG TABLET PO SCH (09:00)
[2019-01-31] MEDS ORDERED: PANTOPRAZOLE SODIUM 20 MG TABLET.DR PO SCH (09:00)
--- NOTE | 2019-01-31 09:25 | PDOC PROGRESS REPORT ---
Subjective Progress Note for:: 01/31/19 Subjective:: ICU progress note. Pt remains in the ICU, awaiting a medical bed. No acute overnight events. Reason For Visit: ACUTE SATISH,SEPSIS,AMS,ARF Physical Exam Vital Signs: Temp Pulse Resp BP Pulse Ox 98.1 F 71 23 H 128/53 H 98 01/31/19 08:00 01/31/19 08:00 01/31/19 08:00 01/31/19 08:00 01/31/19 08:00 Intake & Output 01/30/19 01/31/19 02/01/19 06:59 06:59 06:59 Intake Total 1850 300 Output Total 1820 Balance 30 300 Weight 120.6 kg 121.2 kg General appearance: PRESENT: no acute distress, well-developed, well-nourished Head exam: PRESENT: atraumatic, normocephalic Respiratory exam: PRESENT: decreased breath sounds, unlabored Cardiovascular exam: PRESENT: RRR GI/Abdominal exam: PRESENT: soft Additonal comments: soft, NTND, no rebound, no guarding. Neurological exam: PRESENT: other - asleep, but easily arousable. Results Laboratory Results: 01/31/19 04:26 01/31/19 04:26 01/30/19 01/31/19 01/31/19 10:00 04:26 04:26 WBC 4.7 RBC 3.94 L Hgb 11.7 L Hct 35.5 L MCV 90 MCH 29.8 MCHC 33.1 RDW 14.2 H Plt Count 124 L Seg Neutrophils % 66.4 Carbonic Acid 1.31 HCO3/H2CO3 Ratio 22:1 ABG pH 7.44 ABG pCO2 43.5 ABG pO2 64.1 L ABG HCO3 29.1 H ABG O2 Saturation 93.2 L ABG Base Excess 4.5 FiO2 5L Sodium 140.6 Potassium 3.6 Chloride 102 Carbon Dioxide 31 H Anion Gap 8 BUN 12 Creatinine 0.87 Est GFR ( Amer) > 60 Glucose 94 Calcium 7.7 L Magnesium 1.4 L Impressions: Head CT 01/23/19 22:24 IMPRESSION: No acute intracranial abnormality. Mild chronic microvascular ischemic change and generalized atrophy. TECHNICAL DOCUMENTATION: Quality ID # 436: Final reports with documentation of one or more dose reduction techniques (e.g., Automated exposure control, adjustment of the mA and/or kV according to patient size, use of iterative reconstruction technique) copyright 2010 [employer]- All Rights Reserved Hepatobiliary Scan Nuclear Medicine 01/24/19 00:00 IMPRESSION: Nonvisualization of the gallbladder. Patent common bile duct. Abdomen/Pelvis CT 01/24/19 00:58 IMPRESSION: Acute calculus cholecystitis. TECHNICAL DOCUMENTATION: Quality ID # 436: Final reports with documentation of one or more dose reduction techniques (e.g., Automated exposure control, adjustment of the mA and/or kV according to patient size, use of iterative reconstruction technique) copyright 2010 [employer]- All Rights Reserved Chest X-Ray 01/30/19 00:00 IMPRESSION: Slight increase in right lower lobe airspace disease most likely atelectasis. Chest/Abdomen CTA 01/30/19 00:00 IMPRESSION: 1. No evidence of pulmonary embolus. 2. Enlarged pulmonary arteries and abnormal right to left ventricular ratio suggestive of pulmonary arterial hypertension. 3. Small bilateral pleural effusions and bibasilar atelectasis, left greater than right. Venous Doppler Study 01/30/19 00:00 IMPRESSION: NO EVIDENCE DVT OR SVT IN EITHER LEG. Assessment & Plan - Diagnosis (1) Acute encephalopathy Is this a current diagnosis for this admission?: Yes (2) Acute kidney injury Is this a current diagnosis for this admission?: Yes (3) COPD (chronic obstructive pulmonary disease) Qualifiers: COPD type: COPD with acute exacerbation Qualified Code(s): J44.1 - Chronic obstructive pulmonary disease with (acute) exacerbation Is this a current diagnosis for this admission?: Yes (4) Calculus of gallbladder with cholecystitis Qualifiers: Cholecystitis acuity: acute Biliary obstruction: with biliary obstruction Qualified Code(s): K80.01 - Calculus of gallbladder with acute cholecystitis with obstruction Is this a current diagnosis for this admission?: Yes (5) Thrombocytopenia Is this a current diagnosis for this admission?: Yes - Plan Summary Plan Summary: Mr. Stanley is a 78 yo man s/p cholecystectomy for a cholecystitis and a gangrenous gall bladder, ICU delirum, acute hypoxic respiratory failure, HTN, possible PNA. Plan: 1. Respiratory: acute hypoxic resp failure, resolved. Stable on nasal cannula. Continue bipap prn. 2. Pulmonary: PNA, resolved. Will d/c zosyn. COPD, continue breathing t reatments. CTA of chest negative for PE and PNA 3. CV: HTN. BP acceptable 4. Surgery: s/p cholecystectomy for a gangreous gallbladder on 01/25. AZIZA drain is out. Surgery has signed off. Follow-up as outpt in 2 weeks. 5. ID: PNA, resolved. Day 8 zosyn. Will d/c. 8. Neuro/Psych: enceophalopathy due to ICU delirum. Continue home seroquel and trazodone. Continue prn haldol 9. Nutrition: regular diet 10. Prophylaxis: sq heparin. 11. Disposition: awaiting transfer out of ICU. Awaiting SNF placement.
[2019-01-31] MEDS: DOCUSATE SODIUM 100 MG CAPSULE PO SCH (09:56)
[2019-01-31] MEDS: METOPROLOL SUCCINATE 50 MG TAB.SR.24H PO SCH (09:56)
[2019-01-31] MEDS ORDERED: CLONAZEPAM 1 MG TABLET PO PRN (09:56)
[2019-01-31] MEDS: INSULIN LISPRO 100 UNIT/ML 3 ML VIAL SUBCUT SCH ×2 (09:57→13:54)
[2019-01-31] MEDS: QUETIAPINE FUMARATE 25 MG TABLET PO SCH (09:57)
[2019-01-31] MEDS: CLONAZEPAM 1 MG TABLET PO SCH (09:57)
--- NOTE | 2019-01-31 11:51 | PDOC TRANSFER SUMMARY ---
General - Admit/Disc Date/PCP Admission Date/Primary Care Provider: 01/24/19 02:52 CORAL GUSMAN PA-C Discharge Date: 01/31/19 - Discharge Diagnosis (1) Acute encephalopathy Is this a current diagnosis for this admission?: Yes (2) Acute kidney injury Is this a current diagnosis for this admission?: Yes (3) COPD (chronic obstructive pulmonary disease) Is this a current diagnosis for this admission?: Yes (4) Calculus of gallbladder with cholecystitis Is this a current diagnosis for this admission?: Yes (5) Thrombocytopenia Is this a current diagnosis for this admission?: Yes - Additional Information Resuscitation Status: Do Not Resuscitate Discharge Diet: Cardiac Discharge Activity: Activity As Tolerated Home Medications: Levothyroxine Sodium [Unithroid] 50 mcg PO DAILY 04/20/13 Montelukast Sodium 10 mg PO DAILY 04/20/13 Levothyroxine Sodium [Synthroid] 200 mcg PO DAILY 01/24/19 Quetiapine Fumarate [Seroquel] 25 mg PO TID 01/24/19 Tamsulosin HCl [Flomax] 0.4 mg PO DAILY 01/24/19 Trazodone HCl 50 mg PO QPM 01/24/19 Acetaminophen [Tylenol 325 mg Tablet] 650 mg NG Q4HP PRN tablet 01/31/19 Clonazepam [Klonopin 1 mg Tablet] 0.5 mg PO Q12HP PRN tablet 01/31/19 Insulin Lispro [Humalog Insulin (Lispro) 100 unit/mL] 0 - 12 unit SUBCUT ACHS unit 01/31/19 Ipratropium/Albuterol Sulfate [Duoneb 3 ml Ampul] 3 ml NEB [id number] PRN vial.neb 01/31/19 Levothyroxine Sodium [Synthroid 0.05 mg Tablet] 0.05 mg PO Q6AM tablet 01/31/19 Metoprolol Succinate [Toprol Xl 50 mg Tab.sr] 50 mg PO QAM tab.sr.24h 01/31/19 Montelukast Sodium [Singulair 10 mg Tablet] 10 mg NG QHS tablet 01/31/19 Pantoprazole Sodium [Protonix [address] Tablet] 20 mg PO Q6AM tablet.dr 01/31/19 Quetiapine Fumarate [Seroquel 25 mg Tablet] 25 mg PO TID tablet 01/31/19 Tamsulosin HCl [Flomax 0.4 mg Cap.sr] 0.4 mg PO PCSUPPER cap.sr.24h 01/31/19 Trazodone HCl [Desyrel 50 mg Tablet] 50 mg NG QHS tablet 01/31/19 History of Present Illness Admission Date/PCP: 01/24/19 02:52 CORAL GUSMAN PA-C History of Present Illness: LYNN STANLEY is a 78 year old male who was admitted on 01/24 with acute cholecystitis. He underwent a cholecystectomy on 01/25/19 and was admitted to the ICU post-operatively. Post-op course was complicated by delirium/encephalopathy, HTN, hypoxia, PNA. Hospital Course Hospital Course: Mr. Stanley is a 78 yo man s/p cholecystectomy for a cholecystitis and a gangrenous gall bladder, ICU delirum, acute hypoxic respiratory failure, HTN, possible PNA. Plan: 1. Respiratory: acute hypoxic resp failure, resolved. Stable on nasal cannula. Continue bipap prn. 2. Pulmonary: PNA, resolved. Will d/c zosyn. COPD, continue breathing treatments. CTA of chest negative for PE and PNA 3. CV: HTN. BP acceptable. Continue Toprol XL 4. Surgery: s/p cholecystectomy for a gangreous gallbladder on 01/25. AZIZA drain is out. Surgery has signed off. Follow-up as outpt in 2 weeks. 5. ID: PNA, resolved. Day 8 zosyn. Will d/c. 8. Neuro/Psych: enceophalopathy due to ICU delirum, resolved. Continue home seroquel and trazodone. Continue prn haldol 9. Nutrition: regular diet 10. Prophylaxis: sq heparin. 11. Disposition: awaiting transfer out of ICU. Awaiting SNF placement Physical Exam Vital Signs: Temp Pulse Resp BP Pulse Ox 98.1 F 88 22 H 128/53 H 91 L 01/31/19 08:00 01/31/19 08:28 01/31/19 08:28 01/31/19 08:00 01/31/19 08:28 Intake & Output 01/30/19 01/31/19 02/01/19 06:59 06:59 06:59 Intake Total 1850 300 Output Total 1820 Balance 30 300 Weight 120.6 kg 121.2 kg General appearance: PRESENT: no acute distress, well-developed, well-nourished Head exam: PRESENT: atraumatic, normocephalic Respiratory exam: PRESENT: decreased breath sounds, unlabored Cardiovascular exam: PRESENT: RRR GI/Abdominal exam: PRESENT: soft Extremities exam: PRESENT: other - no edema Neurological exam: PRESENT: alert, awake Psychiatric exam: PRESENT: appropriate affect Results Laboratory Results: 01/31/19 04:26 01/31/19 04:26 01/31/19 01/31/19 04:26 04:26 WBC 4.7 RBC 3.94 L Hgb 11.7 L Hct 35.5 L MCV 90 MCH 29.8 MCHC 33.1 RDW 14.2 H Plt Count 124 L Seg Neutrophils % 66.4 Sodium 140.6 Potassium 3.6 Chloride 102 Carbon Dioxide 31 H Anion Gap 8 BUN 12 Creatinine 0.87 Est GFR ( Amer) > 60 Glucose 94 Calcium 7.7 L Magnesium 1.4 L Impressions: Head CT 01/23/19 22:24 IMPRESSION: No acute intracranial abnormality. Mild chronic microvascular ischemic change and generalized atrophy. TECHNICAL DOCUMENTATION: Quality ID # 436: Final reports with documentation of one or more dose reduction techniques (e.g., Automated exposure control, adjustment of the mA and/or kV according to patient size, use of iterative reconstruction technique) copyright 2010 [employer]- All Rights Reserved Hepatobiliary Scan Nuclear Medicine 01/24/19 00:00 IMPRESSION: Nonvisualization of the gallbladder. Patent common bile duct. Abdomen/Pelvis CT 01/24/19 00:58 IMPRESSION: Acute calculus cholecystitis. TECHNICAL DOCUMENTATION: Quality ID # 436: Final reports with documentation of one or more dose reduction techniques (e.g., Automated exposure control, adjustment of the mA and/or kV according to patient size, use of iterative reconstruction technique) copyright 2010 [employer]- All Rights Reserved Chest X-Ray 01/30/19 00:00 IMPRESSION: Slight increase in right lower lobe airspace disease most likely atelectasis. Chest/Abdomen CTA 01/30/19 00:00 IMPRESSION: 1. No evidence of pulmonary embolus. 2. Enlarged pulmonary arteries and abnormal right to left ventricular ratio suggestive of pulmonary arterial hypertension. 3. Small bilateral pleural effusions and bibasilar atelectasis, left greater than right. Venous Doppler Study 01/30/19 00:00 IMPRESSION: NO EVIDENCE DVT OR SVT IN EITHER LEG. Transfer Plan - Disposition Transfer Plan: Pt will be transferred to a SNF. - Time Spent with Patient Time spent with patient: Less than 30 Minutes Qualifiers - * PATIENT BEING DISCHARGED WITH ANY OF THE FOLLOWING DIAGNOSIS: No VTE patient discharged on overlapping Therapy?: No Acute Heart Failure - Is this a Heart Failure Patient?: No Plan Discharge Plan: Pt being transferred to a SNF. Needs to follow-up with Dr. Brito, general surgery, in 2 weeks.
[2019-01-31 13:54] VITALS: BP 113/38
[2019-02-01] MEDS ORDERED: LEVOTHYROXINE SODIUM 0.05 MG TABLET PO SCH (06:00)
== END 2019-01-31 16:45 | DRG 417 ==
LOC: ER 17:51 → EH 01-24 02:52 → 4S 01-24 19:12 → ICU 01-25 12:30
PROVIDERS: ADMIT Internal Medicine; ATTEND Internal Medicine
PROC: 0FT44ZZ Resection of Gallbladder, Percutaneous Endoscopic Approach (ICD-10-PCS; principal; 2019-01-25 09:00)
PROC: 5A09357 Assistance with Respiratory Ventilation, Less than 24 Consecutive Hours, Continuous Positive Airway Pressure (ICD-10-PCS; 2019-01-29)
DX: K80.01 Calculus of gallbladder with acute cholecystitis with obstruction (principal); J18.9 Pneumonia, unspecified organism; J96.01 Acute respiratory failure with hypoxia; G93.40 Encephalopathy, unspecified; N17.9 Acute kidney failure, unspecified; D62 Acute posthemorrhagic anemia; J44.1 Chronic obstructive pulmonary disease with (acute) exacerbation; D69.6 Thrombocytopenia, unspecified; K82.A1 Gangrene of gallbladder in cholecystitis; Z99.81 Dependence on supplemental oxygen; K74.60 Unspecified cirrhosis of liver; E11.9 Type 2 diabetes mellitus without complications; M06.9 Rheumatoid arthritis, unspecified; Z66 Do not resuscitate; I10 Essential (primary) hypertension; R41.0 Disorientation, unspecified; R47.1 Dysarthria and anarthria; R53.1 Weakness; R45.1 Restlessness and agitation; K21.9 Gastro-esophageal reflux disease without esophagitis; R26.9 Unspecified abnormalities of gait and mobility; E03.9 Hypothyroidism, unspecified; Z79.4 Long term (current) use of insulin; Z83.6 Family history of other diseases of the respiratory system; Z87.891 Personal history of nicotine dependence; Z86.73 Personal history of transient ischemic attack (TIA), and cerebral infarction without residual deficits
CPT/HCPCS: 00790; 36415; 70450; 71045; 71046; 71275; 74176; 78226; 80048; 80053; 81001; 82803; 82962; 83036; 83605; 83735; 84100; 85025; 85027; 85610; 86850; 86900; 86901; 87040; 87086; 88304; 93005; 93010; 93970; 94002; 94003; 94660; 96361; 96374; 99285; A9537; J0330; J1170; J1630; J1644; J1815; J1940; J2250; J2270; J2370; J2405; J2543; J2704; J3010; J3230; J3475; J3480; J3490; J7030; J7050; J7120; J7620; Q9969; S0028